=== PATIENT | male | born 1955 | race Caucasian/White ===

== ENCOUNTER 2016-08-03 00:10 | Observation (INO) ==
[2016-08-03] MEDS ORDERED: Aspirin 81 MG TAB.CHEW PO ONE (00:28)
[2016-08-03] MEDS ORDERED: 0.9 % Sodium Chloride 500 ML IVC ONE (00:28)
--- NOTE | 2016-08-03 00:33 | Emergency Department Note ---
Disposition Clinical Impression: Chest pain of unknown etiology, Unstable angina Disposition: Admitted As Inpatient Condition: Fair Time of Disposition: 04:46 Chest Pain HPI - General Chief Complaint: ED Chest Pain Stated Complaint: chest pain/bri hx of afib,strokes,heart attacks Time Seen by Provider: 08/03/16 00:14 Source: patient Limitations: no limitations Vital Signs Reviewed: Yes Nursing Notes Reviewed: Yes - History of Present Illness HPI Narrative: History of present illness: Patient is a 60-year-old male who presents for chest pain 2 hours ago that woke him from sleep. Patient has a history history of A. fib on xarelto, PR, renal disease, hypertension Patient states pain is 9 out of 10, sharp mid substernal no radiation and worsening with exertion. Patient states nothing makes it better. Severity scale (1-10): 3 - Related Data Home Medications Medication Instructions Recorded Confirmed Insulin ASPART [NovoLOG] 20 unit SQ BIDWM 07/03/15 07/26/16 Insulin Glargine [Lantus] 35 unit SQ DAILY 07/03/15 07/26/16 Insulin Glargine [Lantus] 40 unit SQ HS 07/03/15 07/26/16 Metoprolol [Lopressor] 50 mg PO BID 07/03/15 07/26/16 Aspirin [Lo-Dose Aspirin EC] 81 mg PO 06/10/16 Rivaroxaban [Xarelto] 10 mg PO DAILY 06/10/16 07/26/16 Atorvastatin [Lipitor] 40 mg PO HS 07/26/16 07/26/16 Lisinopril [Zestril] 5 mg PO DAILY 07/26/16 07/26/16 Previous Rx's Medication Instructions Recorded HYDROcodone/Acet 5/325 mg [[place] 1 tab PO Q6H PRN #14 tab 06/10/16 5-325 mg] Cephalexin [Keflex] 1,000 mg PO BID #40 capsule 07/26/16 Sulfamethoxazole/Trimeth DS 1 each PO BID #20 tablet 07/26/16 [Bactrim DS] Tramadol HCl [Ultram] 50 mg PO QID PRN #14 tab 07/26/16 Allergies Allergy/AdvReac Type Severity Reaction Status Date / Time No Known Allergies Allergy Verified 07/03/15 06:38 All systems ED: reviewed and negative except as stated. Constitutional: Denies: fever, chills, weakness Eyes: Denies: eye pain, vision change ENT ED: Denies: congestion Cardiovascular: Reports: chest pain. Denies: palpitations Respiratory: Denies: cough, dyspnea, wheezes, sputum production Gastrointestinal: Denies: abdominal pain, nausea, vomiting, diarrhea Genitourinary: Denies: urgency, dysuria, frequency Musculoskeletal: Denies: back pain, neck pain Integumentary: Denies: rash, abrasion Chest Pain PMH - Past Medical History Medical history: Reports: arthritis, atrial fibrillation, COPD, CVA, diabetes, hyperlipidemia, hypertension, myocardial infarction, renal disease, other Surgical history: Reports: other (Cardiac catheterization) Psychiatric history: Reports: no psych history - Social History Smoking Status: Current some day smoker Alcohol use: Reports: none Drug use: Reports: none Physical Exam - General Limitations: no limitations General appearance: alert, obese - Head Head exam: atraumatic, normocephalic, normal inspection - Eye Eye exam: Present: normal appearance, PERRL, EOMI. Absent: scleral icterus - ENT ENT exam: normal exam, normal oropharynx, mucous membranes moist - Neck Neck exam: Present: normal inspection, full ROM, trachea midline. Absent: tenderness, meningismus, lymphadenopathy - Chest Chest inspection: Present: normal inspection, symmetric chest wall rise. Absent : tenderness - Respiratory Respiratory exam: Present: normal lung sounds bilaterally. Absent: respiratory distress, wheezes - Cardiovascular Cardiovascular exam: Present: tachycardia, irregular rhythm. Absent: regular rate (Irregular rate) - Abdominal Exam Abdominal exam: Present: soft, Non-Tender - Extremities Exam Extremities exam: Present: normal inspection, full ROM, normal capillary refill. Absent: pedal edema - Back Exam Back exam: Present: normal inspection, full ROM. Absent: tenderness, CVA tenderness (R), CVA tenderness (L) - Neurological Exam Neurological exam: Present: alert, oriented X3, CN II-XII intact - Psychiatric Psychiatric exam: Present: normal affect, normal mood - Skin Skin exam: Present: warm, dry, intact, normal color. Absent: rash Course - Reevaluation(s) Reevaluation #1: Assessment: ACS/PR, aortic dissection, AAA, pneumothorax, PE Time: 00:29 Reevaluation #2: Patient states that his pain has subsided and currently 0 out of 10. Patient received 325 of aspirin Time: 01:43 Reevaluation #3: Patient still comfortable doing well. No complaints. The patient will be admitted for chest pain workup and cardiac evaluation Time: 02:30 - Consultations Consultation #1: Dr. Colunga has accepted for admission Time: 03:00 Vital Signs Temperature 97.4 F L 08/03/16 00:16 Pulse Rate 72 08/03/16 00:16 Respiratory Rate 14 08/03/16 00:16 Blood Pressure 129/101 08/03/16 00:16 O2 Sat by Pulse Oximetry 96 08/03/16 00:16 Temperature 97.9 F 08/03/16 04:42 Pulse Rate 81 08/03/16 04:42 Respiratory Rate 16 08/03/16 04:42 Blood Pressure 118/91 08/03/16 04:42 O2 Sat by Pulse Oximetry 95 08/03/16 05:54 Oxygen Delivery Oxygen Delivery Room Air Chest Pain - Medical Records Medical records reviewed: Yes I reviewed the patient's medical records. - Lab Data Lab results reviewed: Yes I reviewed the patient's lab results. Lab results narrative: Short CBC 08/03/16 Range/Units 00:39 WBC 9.8 (4.3-11.1) K/mcL Hgb 13.2 (12.9-16.9) g/dL Hct 40.3 (37.5-50.1) % Plt Count 394 (140-400) K/mcL Neutrophils # 6.1 (1.6-8.9) K/mcL BMP 08/03/16 Range/Units 00:39 Sodium 139 (136-145) mEq/L Potassium 5.1 H (3.5-4.5) mEq/L Chloride 108 (98-109) mEq/L Carbon Dioxide 22 (19-29) mEq/L BUN 36 H (8-26) mg/dL Creatinine 1.69 H (0.72-1.25) mg/dL Glucose 203 H (70-99) mg/dL Calcium 9.5 (8.6-10.8) mg/dL Cardiac Enzymes 08/03/16 Range/Units 00:39 Troponin I 0.00 (0-0.03) ng/mL Result diagrams: 08/03/16 00:39 08/03/16 06:01 Lab Results 08/03/16 08/03/16 08/03/16 Range/Units 00:39 00:39 00:39 WBC 9.8 (4.3-11.1) K/mcL RBC 4.20 (4.19-5.50) M/mcL Hgb 13.2 (12.9-16.9) g/dL Hct 40.3 (37.5-50.1) % MCV 96.0 (83.0-100.0) fL MCH 31.4 (28.0-33.3) pg MCHC 32.8 (31.6-35.5) g/dL RDW 12.8 (11.5-14.5) % Plt Count 394 (140-400) K/mcL MPV 9.8 (9.4-12.4) fL Immature Gran % 1.4 (0-4) % Seg Neutrophils % 62.5 % Lymphocytes % 23.3 % Monocytes % 8.7 % Eosinophils % 3.3 % Basophils % 0.8 % Neutrophils # 6.1 (1.6-8.9) K/mcL Lymphocytes # 2.3 (0.6-4.6) K/mcL Monocytes # 0.9 (0.0-1.3) K/mcL Eosinophils # 0.3 (0.0-0.6) K/mcL Basophils # 0.1 (0.0-0.2) K/mcL APTT 32.8 (26.0-36.0) Seconds Sodium 139 (136-145) mEq/L Potassium 5.1 H (3.5-4.5) mEq/L Chloride 108 (98-109) mEq/L Carbon Dioxide 22 (19-29) mEq/L BUN 36 H (8-26) mg/dL Creatinine 1.69 H (0.72-1.25) mg/dL Est GFR ( Amer) 50 L (> 60) Est GFR (Non-Af Amer) 42 L (> 60) BUN/Creatinine Ratio 21 (6-26) Glucose 203 H (70-99) mg/dL Calculated Osmolality 302 H (280-300) Lactic Acid (0.5-2.2) mmol/L Calcium 9.5 (8.6-10.8) mg/dL Troponin I (0-0.03) ng/mL 08/03/16 08/03/16 Range/Units 00:39 00:39 WBC (4.3-11.1) K/mcL RBC (4.19-5.50) M/mcL Hgb (12.9-16.9) g/dL Hct (37.5-50.1) % MCV (83.0-100.0) fL MCH (28.0-33.3) pg MCHC (31.6-35.5) g/dL RDW (11.5-14.5) % Plt Count (140-400) K/mcL MPV (9.4-12.4) fL Immature Gran % (0-4) % Seg Neutrophils % % Lymphocytes % % Monocytes % % Eosinophils % % Basophils % % Neutrophils # (1.6-8.9) K/mcL Lymphocytes # (0.6-4.6) K/mcL Monocytes # (0.0-1.3) K/mcL Eosinophils # (0.0-0.6) K/mcL Basophils # (0.0-0.2) K/mcL APTT (26.0-36.0) Seconds Sodium (136-145) mEq/L Potassium (3.5-4.5) mEq/L Chloride (98-109) mEq/L Carbon Dioxide (19-29) mEq/L BUN (8-26) mg/dL Creatinine (0.72-1.25) mg/dL Est GFR ( Amer) (> 60) Est GFR (Non-Af Amer) (> 60) BUN/Creatinine Ratio (6-26) Glucose (70-99) mg/dL Calculated Osmolality (280-300) Lactic Acid 1.6 (0.5-2.2) mmol/L Calcium (8.6-10.8) mg/dL Troponin I 0.00 (0-0.03) ng/mL - Radiology Data Radiology results reviewed: Yes I reviewed the patient's radiology results. Chest X-Ray 08/03/16 00:28 IMPRESSION: Cardiomegaly with grossly clear lungs. D/ / Steven Gonzalez MD / Steven Gonzalez MD Interpreting Provider: Steven Gonzalez MD - EKG Data EKG attestation: Yes I reviewed and interpreted this EKG. EKG results narrative: EKG taken 08/03/2016 at 0014 hours shows A. fib RVR at a rate of 103 beats a minute with no acute ST elevations or depressions in any leads. No QRS widening or QT prolongation. Previous EKG taken 07/03/2015 she also shows A. fib RVR at a rate of 103 beats per minute same morphological waveform as today' s EKG. Heart Score - Score History: Moderately Suspicious EKG: Non Specific repolarisation Disturbance Age: 45-65 Risk Factors: Equal/Greater than 3 risk factor or history of atherosclerotic disease Troponin: Less than normal limit HEART Score Total: 5 Attestation Statement - Attestation Attestation: I, Chava Ding MD, personally performed a history and physical exam of the patient and discussed their management with the resident. I reviewed the resident's note and agree with the documented findings, medical decision making , and plan of care. 60-year-old male presents to the emergency department with a complaint of some mid chest pain that awoke him from sleep. No radiation of the pain. No diaphoresis. Mild nausea. No vomiting. Mild shortness of breath. On examination patient is a well-developed well-nourished male in no acute distress. He is alert and oriented 3. There is no cyanosis or diaphoresis. Chest is nontender to palpation. Clear and equal bilaterally. Heart irregularly irregular. Abdomen soft and nontender with normal bowel sounds. Labs reviewed. EKG shows atrial fibrillation with RVR with a heart rate of 103. The hospitalist, Dr. Colunga, was consulted and accepted admission of the patient.
[2016-08-03 00:50] LABS: Basophils # 0.1 K/mcL (0.0-0.2); Basophils % 0.8 %; Eosinophils # 0.3 K/mcL (0.0-0.6); Eosinophils % 3.3 %; Hematocrit 40.3 % (37.5-50.1); Hemoglobin 13.2 g/dL (12.9-16.9); Immature Granulocytes % 1.4 % (0-4); Lymphocytes # 2.3 K/mcL (0.6-4.6); Lymphocytes % 23.3 %; Mean Corpuscular HGB Conc 32.8 g/dL (31.6-35.5); Mean Corpuscular Hemoglobin 31.4 pg (28.0-33.3); Mean Platelet Volume 9.8 fL (9.4-12.4); Monocytes # 0.9 K/mcL (0.0-1.3); Monocytes % 8.7 %; Neutrophils # 6.1 K/mcL (1.6-8.9); Platelet Count 394 K/mcL (140-400); Red Cell Distribution Width 12.8 % (11.5-14.5); Segmented Neutrophils % 62.5 %
[2016-08-03 01:02] LABS: Calcium 9.5 mg/dL (8.6-10.8); Potassium 5.1 mEq/L (3.5-4.5)
--- NOTE | 2016-08-03 04:26 | Internal Med History&Physical ---
Date of Encounter: 08/03/16 Time of Encounter: 04:01 Assessment and Plan (1) Chest pain Current visit: Yes Status: Acute patient with no prior history of obstructive CAD but significant personal and family history of premature CAD comes in with chest pain, we will admit him for ACS r/o, admission EKG was unchanged from prior, troponin was not elevated NPO except medications, will check Lipid panel and A1c, telemonitor continue aspirin and lipitor nuclear stress test in AM Qualifiers: Chest pain type: precordial pain Qualified Code(s): R07.2 - Precordial pain (2) Cellulitis Current visit: Yes Status: Acute pt has cellulitis with abscess of the right elbow that grew MRSA, he is on Bactrim for that which we will continue bas well as wound care Qualifiers: Site of cellulitis: extremity Site of cellulitis of extremity: upper extremity Laterality: right Qualified Code(s): L03.113 - Cellulitis of right upper limb (3) CKD (chronic kidney disease) stage 3, GFR 30-59 ml/min Current visit: Yes Status: Chronic stable, will avoid nephrotoxins, renally dose all medications and follow BMP (4) DM type 2 (diabetes mellitus, type 2) Current visit: Yes Status: Chronic Hx of Type 2 DM with good control per last A1c, we will recheck it, for now FS Q6H with SSI whilst NPO Qualifiers: Diabetes mellitus complication status: with kidney complications Diabetes mellitus complication detail: with chronic kidney disease Diabetes mellitus usp insulin use: with termination clerk use Chronic kidney disease stage: stage 3 (moderate) Qualified Code(s): E11.22 - Type 2 diabetes mellitus with diabetic chronic kidney disease; N18.3 - Chronic kidney disease, stage 3 ( moderate); Z79.4 - rat exterminator (current) use of insulin (5) HTN (hypertension) Current visit: Yes Status: Chronic normotensive on home regimen, we will continue that with BP monitoring Qualifiers: Hypertension type: essential hypertension Qualified Code(s): I10 - Essential (primary) hypertension (6) Afib Current visit: Yes Status: Chronic Hx of chronic AFIB and on systemic anticoagulation and rate controlled medication Qualifiers: Atrial fibrillation type: chronic Qualified Code(s): I48.2 - Chronic atrial fibrillation (7) COPD (chronic obstructive pulmonary disease) Current visit: Yes Status: Chronic stable, we will order PRN nebs Qualifiers: COPD type: chronic bronchitis Chronic bronchitis type: simple Qualified Code(s): J41.0 - Simple chronic bronchitis (8) Morbid obesity Current visit: Yes Status: Chronic will need counseling regarding diet Qualifiers: Obesity type: due to excess calories Qualified Code(s): E66.01 - Morbid ( severe) obesity due to excess calories Internal Medicine - H&P: HPI Chief complaint: Chest pain Admitted From: Emergency Dept Plans for Post Hospital Care: Home History of present illness: Mr. Connell is a 60 year old male with a history of well controlled DM type 2/ HTN/morbid obesity with a BMI of 56kg/m2 who comes in with chest pain. He was in his usual state of health until at around 10:30 pm last night when he was rudely awaken by severe sharp retrosternal pain. He reports that the pain was 8- 9/10 in severity and constant, it was relieved by aspirin en route to the ER of [facility]. He reports that his pain was associated with shortness of breath, palpitations, diaphoresis, lightheadedness but denied nausea or vomiting. The pain did not radiate. He reports that this is his first such episode. He had a stress test in 2013 which was followed by a cardiac cath but no stents were placed. In the ER his EKG was AFIB with RVR of 103, no change from prior EKG, his troponin levels were not elevated. Past Med Surg Social Fam HX - Past Medical History Source: patient Medical history: arthritis, atrial fibrillation, COPD, CVA, diabetes, hyperlipidemia, hypertension, myocardial infarction, renal disease, other Psychiatric history: no psych history - Past Surgical History Surgical History: other (Cardiac catheterization) - Social History Smoking Status: Current some day smoker Smokeless Tobacco Status: No Alcohol use: none Drug use: none - Family History Father Hx Family Cardiac Disorders: Yes (DE) - Additional Family History Additional family history: his father had an DE in his 40's, brother had an DE in his 60's and his sister had an DE in her 50's Internal Medicine - H&P: Meds Insulin ASPART [NovoLOG] 20 unit SQ BIDWM 07/03/15 [History] Insulin Glargine [Lantus] 35 unit SQ DAILY 07/03/15 [History] Insulin Glargine [Lantus] 40 unit SQ HS 07/03/15 [History] Metoprolol [Lopressor] 50 mg PO BID 07/03/15 [History] Aspirin [Lo-Dose Aspirin EC] 81 mg PO 06/10/16 [History] HYDROcodone/Acet 5/325 mg [[place] 5-325 mg] 1 tab PO Q6H PRN #14 tab 06/10/16 [Rx ] Rivaroxaban [Xarelto] 10 mg PO DAILY 06/10/16 [History] Atorvastatin [Lipitor] 40 mg PO HS 07/26/16 [History] Cephalexin [Keflex] 1,000 mg PO BID #40 capsule 07/26/16 [Rx] Lisinopril [Zestril] 5 mg PO DAILY 07/26/16 [History] Sulfamethoxazole/Trimeth DS [Bactrim DS] 1 each PO BID #20 tablet 07/26/16 [Rx] Tramadol HCl [Ultram] 50 mg PO QID PRN #14 tab 07/26/16 [Rx] Allergies No Known Allergies Allergy (Verified 07/03/15 06:38) All Systems PM: A 10-system review of systems was performed and is negative for pertinent findings except as documented above in the HPI. - Constitutional Constitutional: as per HPI - EENT Eyes: as per HPI Ears: as per HPI Nose, mouth and throat: as per HPI - Cardiovascular Cardiovascular ROS IM: as per HPI - Respiratory Respiratory: as per HPI - Gastrointestinal Gastrointestinal: as per HPI - Genitourinary Genitourinary ROS male: as per HPI - Musculoskeletal Musculoskeletal ROS IM: as per HPI - Integumentary Integumentary IM: erythema, sores - Neurological Neurological ROS: no confusion, no convulsions, no focal weakness, no numbness, no tingling, no tremor(s) - Psychiatric Psychiatric: as per HPI - Endocrine Endocrine IM: as per HPI - Hematologic/Lymphatic Hematologic/Lymphatic: as per HPI - Allergic/Immunologic Allergic/Immunologic: as per HPI - Constitutional Vitals: Temp Pulse Resp BP Pulse Ox 97.4 F L 85 18 124/80 96 08/03/16 00:16 08/03/16 03:57 08/03/16 04:09 08/03/16 04:09 08/03/16 03:57 - General General appearance: Adult male, sitting up by the side of his bed, morbidly obese looking, alert, not in obvious pain - Head Head exam: atraumatic, normocephalic, normal inspection - Eye Eye exam: normal appearance, PERRL, EOMI, normal conjunctiva, Absent: scleral icterus - ENT ENT exam: erythema of the nasolabial folds bilaterally, normal oropharynx, mucous membranes moist - Neck Neck exam: short, thick neck, full ROM, trachea midline. Absent: tenderness, meningismus, lymphadenopathy - Respiratory Respiratory exam: Present: normal lung sounds bilaterally. Absent: respiratory distress, wheezes - Cardiovascular Cardiovascular exam: Present: tachycardia, irregular rhythm, no appreciable murmurs, trace pedal edema - Abdominal Exam Abdominal exam: soft, Non-Tender, no masses palpable, normal bowel sounds - Extremities Exam Extremities exam: Present: normal inspection, full ROM, normal capillary refill. Absent: pedal edema - Neurological Exam Neurological exam: Present: alert, oriented X3, CN II-XII intact, non focal motor and sensory exam - Psychiatric Psychiatric exam: Present: normal affect, normal mood - Skin Skin exam: Present: warm, dry, intact, erythema as noted in the HEENT section, also erythema with healing ulcer at the right elbow-extensor surface Internal Med - H&P Results - Labs CBC & Chem 7: 08/03/16 00:39 08/03/16 00:39 - EKG Data -: EKG Interpreted by Myself Rate: tachycardia - EKG Data Prior EKG available for review: yes When compared to previous EKG: there is no significant change - Diagnostic Studies Chest x-ray Status: image reviewed by me
[2016-08-03] MEDS ORDERED: *HR* Dextrose 50 % in Water (Syg) 50 ML SYRINGE IVP PRN (04:28)
[2016-08-03] MEDS ORDERED: D5% in Water 1,000 ML IVC PRN (04:28)
[2016-08-03] MEDS ORDERED: Dextrose Gel 15 GM PO PRN ×2 (04:28)
[2016-08-03] MEDS ORDERED: Naloxone 0.4 MG/ML INJ IVP PRN (04:29)
[2016-08-03] MEDS ORDERED: *HR* HYDROcodone/Acet 5/325 mg TABLET PO PRN (04:30)
[2016-08-03] MEDS ORDERED: Mag Hydrox/Al Hydrox/Simeth 30 ML UDC PO PRN (04:47)
[2016-08-03] MEDS ORDERED: Nitroglycerin 0.4 MG TAB.SUBL SL PRN (04:48)
[2016-08-03] MEDS: 0.9 % Sodium Chloride 1,000 ML IVC SCH ×2 (05:06→22:40)
[2016-08-03] MEDS: Insulin LISPRO 300 UNITS/3 ML VIAL SQ SCH ×3 (05:27→17:35)
[2016-08-03 06:28] LABS: Hemoglobin A1C 6.7 %
[2016-08-03 06:32] LABS: Calcium 9.5 mg/dL (8.6-10.8); Chol/HDL Ratio 4.2 (0-4.9); Magnesium 1.8 mg/dL (1.6-2.6); Phosphorous 4.3 mg/dL (2.3-4.7); Potassium 5.3 mEq/L (3.5-4.5)
[2016-08-03] MEDS: *HR* Rivaroxaban 10 MG TABLET PO SCH (06:34)
[2016-08-03] MEDS ORDERED: Regadenoson 0.4 MG/5 ML SYRINGE IVP ONE (07:11)
[2016-08-03] MEDS: Sulfamethoxazole/Trimeth DS 1 EACH TABLET PO SCH ×2 (11:08→21:46)
[2016-08-03] MEDS: Aspirin Enteric Coated 81 MG Tablet PO SCH (11:08)
--- NOTE | 2016-08-03 18:08 | Internal Med Progress Note ---
Date of Encounter: 08/03/16 Time of Encounter: 17:50 - Assessment and plan (1) CKD (chronic kidney disease) stage 3, GFR 30-59 ml/min Current Visit: Yes Status: Chronic Assessment and plan: Chronic. Creatinine is at baseline for the patient. We will continue to monitor Labs in the a.m. Avoid nephrotoxins. (2) DM type 2 (diabetes mellitus, type 2) Current Visit: Yes Status: Chronic Assessment and plan: A1c is 6.7. Last Accu-Chek 181. Sliding scale insulin Accu-Cheks before meals at bedtime Diabetic diet Qualifiers: Diabetes mellitus complication status: with kidney complications Diabetes mellitus complication detail: with chronic kidney disease Diabetes mellitus local company intermodal truck driver insulin use: with senior living use Chronic kidney disease stage: stage 3 (moderate) Qualified Code(s): E11.22 - Type 2 diabetes mellitus with diabetic chronic kidney disease; N18.3 - Chronic kidney disease, stage 3 ( moderate); Z79.4 - detention (current) use of insulin (3) Chest pain Current Visit: Yes Status: Acute Assessment and plan: Patient reports chest pain that awakened him at 10:30 last night. It was really bad for about 45 minutes. He says it sharp and he had cold sweats. He denies shortness of breath or nausea. He also denies radiation of pain. He arrived at the emergency department at about midnight. He said pain finally resolved about 2:30 in the morning. He has been pain-free since. Troponins have been negative Chest x-ray simply shows cardiomegaly and grossly clear lungs. Earth Science Technical Officer vital signs 2 day stress test will be completed tomorrow Pain control as needed Qualifiers: Chest pain type: precordial pain Qualified Code(s): R07.2 - Precordial pain (4) Morbid obesity Current Visit: Yes Status: Chronic Assessment and plan: Chronic. Lifestyle changes. Qualifiers: Obesity type: due to excess calories Qualified Code(s): E66.01 - Morbid ( severe) obesity due to excess calories (5) HTN (hypertension) Current Visit: Yes Status: Chronic Assessment and plan: Chronic. Continue home medications. Qualifiers: Hypertension type: essential hypertension Qualified Code(s): I10 - Essential (primary) hypertension (6) Afib Current Visit: Yes Status: Chronic Assessment and plan: Patient is rate controlled with medication. He is also anticoagulated. Earth Science Technical Officer vital signs Qualifiers: Atrial fibrillation type: chronic Qualified Code(s): I48.2 - Chronic atrial fibrillation (7) COPD (chronic obstructive pulmonary disease) Current Visit: Yes Status: Chronic Assessment and plan: Chronic. Well controlled Duo nebs as needed. Qualifiers: COPD type: chronic bronchitis Chronic bronchitis type: simple Qualified Code(s): J41.0 - Simple chronic bronchitis (8) Cellulitis Current Visit: Yes Status: Acute Assessment and plan: Patient has MRSA infection to right elbow. It is covered and bandaged. He is taking Bactrim but is being continued inpatient. Qualifiers: Site of cellulitis: extremity Site of cellulitis of extremity: upper extremity Laterality: right Qualified Code(s): L03.113 - Cellulitis of right upper limb - Time Spent With Patient less than 15 minutes - Subjective Interval history: Pt states that he had sharp midsternal chest pain without radiation that awakened him from sleep at 1030 last pm. He said that he had cold sweats and that pain was very sharp for abou 45 min. He came to the ED at about midnight and pain persisted until about 0230. He has not had pain since. He is having a 2 day stress test. - Constitutional Vitals: Temp Pulse Resp BP Pulse Ox 97.6 F 95 17 144/78 93 08/03/16 15:28 08/03/16 15:28 08/03/16 15:28 08/03/16 15:28 08/03/16 15:28 General appearance: Present: A&O X 3, pleasant, answers questions appropriately - Head Head exam: Present: normal inspection - ENT ENT exam: Present: mucous membranes moist, normal exam - Neck Neck exam general surgery: Present: normal inspection. Absent: lymphadenopathy , tenderness - Respiratory Respiratory exam: Present: CTAB. Absent: rhonchi, wheezes - Cardiovascular Cardiovascular exam: Present: RRR, +S1, +S2. Absent: diastolic murmur, systolic murmur - GI/Abdominal GI/Abdominal exam: Present: normal bowel sounds, soft. Absent: hepatomegaly, splenomegaly, tenderness - Extremities Exam Extremities exam: Present: normal capillary refill, normal inspection, warm. Absent: pedal edema, tenderness - Neurological Exam Neurological exam: Present: alert, oriented X3, no focal deficits, strengths equal and symetr throughout. Absent: facial droop, speech deficit Internal Medicine: Result - Labs CBC & Chem 7: 08/03/16 00:39 08/03/16 06:01 Labs: BMP 08/03/16 06:01 Sodium 139 Potassium 5.3 H Chloride 109 Carbon Dioxide 22 BUN 36 H Creatinine 1.67 H Glucose 126 H Calcium 9.5 Cardiac Enzymes 08/03/16 08/03/16 Range/Units 06:01 12:51 Troponin I 0.01 0.01 (0-0.03) ng/mL Consult Discharge Plan - Plan Referrals: Lissett Sanders, COSMETOLOGIST APPRENTICE [Primary Care Provider] -
[2016-08-04] MEDS: Insulin LISPRO 300 UNITS/3 ML VIAL SQ SCH ×3 (00:05→12:34)
[2016-08-04 02:57] LABS: Basophils # 0.1 K/mcL (0.0-0.2); Basophils % 0.7 %; Eosinophils # 0.3 K/mcL (0.0-0.6); Eosinophils % 2.8 %; Hematocrit 37.4 % (37.5-50.1); Hemoglobin 12.1 g/dL (12.9-16.9); Immature Granulocytes % 0.8 % (0-4); Lymphocytes # 2.5 K/mcL (0.6-4.6); Lymphocytes % 20.7 %; Mean Corpuscular HGB Conc 32.4 g/dL (31.6-35.5); Mean Corpuscular Hemoglobin 31.7 pg (28.0-33.3); Mean Corpuscular Volume 97.9 fL (83.0-100.0); Mean Platelet Volume 10.3 fL (9.4-12.4); Monocytes # 1.2 K/mcL (0.0-1.3); Monocytes % 10.4 %; Neutrophils # 7.7 K/mcL (1.6-8.9); Platelet Count 384 K/mcL (140-400); Red Blood Count 3.82 M/mcL (4.19-5.50); Red Cell Distribution Width 12.9 % (11.5-14.5); Segmented Neutrophils % 64.6 %
[2016-08-04 03:10] LABS: Calcium 8.8 mg/dL (8.6-10.8)
[2016-08-04] MEDS: *HR* Rivaroxaban 10 MG TABLET PO SCH (05:59)
[2016-08-04] MEDS: Aspirin Enteric Coated 81 MG Tablet PO SCH (10:18)
[2016-08-04] MEDS: Sulfamethoxazole/Trimeth DS 1 EACH TABLET PO SCH (10:18)
--- NOTE | 2016-08-04 10:59 | Nuclear Medicine Stress Report ---
Regadenoson Nuclear 2 day Name: Shadi Connell Date of Study: 08/03/2016 Date: 1955 Ht: 68.0 in Medical Record#: [id number] Age: 60 Wt: 369.0 lb Gender: Male Order #: [id number] Location: [facility] Room: [facility] Supervising Provider: Dmitry Crawford CNP Reading Physician: Tahir Hdez MD, LOCATED WITHIN [facility] Ordering Physician: Brianne Rogers CNP Primary Care Physician: RASHAD Gutierrez Stress Technologist: Stiven Weems RRT, CCT Medical Laboratory Scientist: Timothy Lincoln Indications: Chest Pain Impression: Perfusion imaging was negative for ischemia or infarct. Pharmacologic ECG was non diagnostic for ischemia. Patient had no chest pain with stress. Normal hemodynamic response. Gated EF = 50% compromised because of AF There is no evidence of TID. No high risk findings on this study. History: Hypertension Diabetes Hypercholesteremia History of Smoking Stress Test Summary: Stress Test Type: Pharmacologic Regadenoson 0.4mg/5ml given IV Baseline Information: Initial Heart Rate: 101 Blood Pressure: 126/80 Stress Information: Stress Time: 4 min 00 sec Test Terminated Due to (primary): Completed Protocol Maximum Blood Pressure: 132/80 Maximum Heart Rate: 127 Percent Maximum Heart Rate Achieved: 80 Double Product: [id number] METS Reached: 1 Symptoms: Nausea Nuclear Summary: SPECT myocardial perfusion imaging using Tc99m Sestamibi given intravenously was performed at rest and following cardiac stress testing. The resting images were obtained following initial dose of 34.9 mCi. Following stress an additional dose of 35.8 mCi was given at peak exercise or 30 seconds post regadenoson infusion. Medication Given: Time Medication Dose Units Route Findings: Stress Note * Atrial fibrillation with with controlled ventricular response prior to exam beginning. * Pharmacologic stress ECG is non diagnostic for ischemia due to failure to reach target heartrate. * Atrial fibrillation during stress. * Rare PVCs noted during stress. * Patient had no chest pain during stress. Study Quality * Study quality is average. Hemodynamic responses * Normal hemodynamic responses to pharmacologic stress. Gated EF % * Gated EF = 50% compromised by AF Left Ventricle * The left ventricle is not dilated. NORMALS * Normal wall motion. * Normal segmental perfusion in stress. * All other segmental perfusion normal in rest. Inferior Perfusion Rest * The inferior segment shows a mild reduction in perfusion. That improves with stress consistent with artifact. TID * No evidence of transient ischemic dilatation. Updated by Tahir Hdez MD, FACC on 08/04/2016 10:53:06 AM electronically signed on 08/04/2016 10:54:56 AM with status of Final
[2016-08-04 11:29] VITALS: BP 116/70
--- NOTE | 2016-08-04 14:36 | Discharge Summary ---
Date of Encounter: 08/04/16 Time of Encounter: 14:00 - Discharge Diagnosis (1) Chest pain Priority: Primary Status: Acute Comments: Patient is pain-free today. He denies having any pain since the night he arrived. His troponins were negative, chest x-ray was cardiomegaly grossly clear lungs. Patient's vitals have been stable. Echocardiogram today was negative for ischemia or infarct, no chest pain during stress, gated EF 50% no evidence of TID, no high risk findings on this study. Qualifiers: Chest pain type: other chest pain Qualified Code(s): R07.89 - Other chest pain; R07.8 - Other chest pain (2) CKD (chronic kidney disease) stage 3, GFR 30-59 ml/min Priority: Secondary Status: Chronic Comments: Stable, patient will continue to drink water. He refused IV fluids all night because the pump was beeping. We did get about 100 mL in him today. He will follow-up with his primary care physician. (3) DM type 2 (diabetes mellitus, type 2) Priority: Secondary Status: Chronic Comments: Chronic. Continue medications at home. Current A1c is 6.7. Qualifiers: Diabetes mellitus complication status: with kidney complications Diabetes mellitus complication detail: with chronic kidney disease Diabetes mellitus continuous churn buttermaker insulin use: with group home use Chronic kidney disease stage: stage 3 (moderate) Qualified Code(s): E11.22 - Type 2 diabetes mellitus with diabetic chronic kidney disease; N18.3 - Chronic kidney disease, stage 3 ( moderate); Z79.4 - [facility] (current) use of insulin (4) Morbid obesity Priority: Secondary Status: Chronic Comments: Chronic. Lifestyle changes. Qualifiers: Obesity type: due to excess calories Qualified Code(s): E66.01 - Morbid ( severe) obesity due to excess calories (5) HTN (hypertension) Priority: Secondary Status: Chronic Comments: Chronic. Continue home medications. Qualifiers: Hypertension type: essential hypertension Qualified Code(s): I10 - Essential (primary) hypertension (6) Afib Priority: Secondary Status: Chronic Comments: Patient is rate controlled with beta rodney, is on systemic anticoagulation. Will continue at home. Qualifiers: Atrial fibrillation type: chronic Qualified Code(s): I48.2 - Chronic atrial fibrillation (7) COPD (chronic obstructive pulmonary disease) Priority: Secondary Status: Chronic Comments: Stable. Well-controlled at home. Continue home medications and regimen. Qualifiers: COPD type: chronic bronchitis Chronic bronchitis type: simple Qualified Code(s): J41.0 - Simple chronic bronchitis (8) Cellulitis Priority: Secondary Status: Chronic Comments: Patient is taking Bactrim for a MRSA infection on his right elbow. He has been on contact but cautions while he has been here. Continue home medications. Qualifiers: Site of cellulitis: extremity Site of cellulitis of extremity: upper extremity Laterality: right Qualified Code(s): L03.113 - Cellulitis of right upper limb - Discharge Medications Home Medications: Insulin ASPART [NovoLOG] 0 - 32 unit SQ TID PRN 07/03/15 [History] Insulin Glargine [Lantus] 35 unit SQ DAILY 07/03/15 [History] Insulin Glargine [Lantus] 40 unit SQ HS 07/03/15 [History] Metoprolol [Lopressor] 50 mg PO BID 07/03/15 [History] Aspirin [Lo-Dose Aspirin EC] 81 mg PO DAILY 06/10/16 [History] Atorvastatin [Lipitor] 40 mg PO HS 07/26/16 [History] Lisinopril [Zestril] 10 mg PO DAILY 07/26/16 [History] Sulfamethoxazole/Trimeth DS [Bactrim Ds] 1 each PO BID #20 tablet 07/26/16 [Rx] Tramadol HCl [Ultram] 50 mg PO QID PRN #14 tab 07/26/16 [Rx] Albuterol Sulfate [Albuterol Inhaler] 2 puff IH Q4-6H PRN 08/03/16 [History] Cholecalciferol (Vitamin D3) [Vitamin D3] 50,000 unit PO QWEEK 08/03/16 [History ] Clindamycin HCl [Cleocin HCl] 300 mg PO TID 08/03/16 [History] Diltiazem CD (24hr) [Cardizem CD] 120 mg PO DAILY 08/03/16 [History] Fluticasone Propionate Nasal [Flonase] 1 spray NS DAILY 08/03/16 [History] Liraglutide [Victoza 2-Henry] 1.2 mg SQ DAILY 08/03/16 [History] Oxycodone HCl/Acetaminophen [Percocet 7.5-325 mg Tablet] 1 each PO QID PRN 08/03 [History] Rivaroxaban [Xarelto] 20 mg PO DAILY 08/03/16 [History] Triamterene/HCTZ 37.5/25mg [Dyazide] 1 tab PO DAILY 08/03/16 [History] Allergies/Adverse Reactions: Allergies No Known Allergies Allergy (Verified 08/03/16 11:34) Procedures/tests Complete & Pending: Procedures Performed prior 72 hours Category Date Time Status NM swathi perf SPECT multi [NM] Routine Exams 08/03/16 09:00 Taken SP pharm nuclear stress Routine Y 08/03/16 04:28 Completed Date of admission: 08/03/16 03:55 Primary care physician: Lissett Sanders Consults: 08/03/16 05:33 Consult to Nutrition [CONS] Routine Comment: Consulting Provider: NUTRITION Reason for Dietary Consult: Diet Education Discharging clinician: Brianne Rogers Anticipated date of discharge: 08/04/16 - Patient Status Disposition: Home, Self-Care Condition: Good Functional capacity at discharge: independent ambulation Overall status at discharge: patient is back to baseline - Discharge Instructions Follow Up With: Lissett Sanders, [employer] [Primary Care Provider] - Additional Instructions: Continue your normal home medications Return to the ER as needed for any other problems or concerns or if your condition changes. Drink plenty of water over the next few days to flush your kidneys Follow up with your primary care provider in the next week for a follow up appointment. - Diet and Activity Activity: increase activity as tolerated Diet: diabetic diet, low salt diet Hospital course: Mr. Connell is a 60 year old male with a history of A. fib with anticoagulation and medication for rate control, COPD, morbid obesity, hypertension, type 2 diabetes, and stage III kidney disease. He is also being treated now for a MRSA infection on his right elbow. He is being treated with Doxy and Bactrim will continually gets home. He has no prior history of cardiac disease of his own, he has a significant family history and presents with chest pain that awakened him from sleep at 10:30 on August 02. He said the pain was really sharp and intense for about 45 minutes and he began having cold sweats. He denied shortness of breath or nauseated or relation of pain. He wrecked the emergency department at midnight and pain finally resolved about 2: 30 in the morning after nitroglycerin and morphine. He has been pain-free since that time. His troponins were all negative. Chest x-ray showed cardiomegaly with grossly clear lungs, difficult to assess due to patient's body habitus. Patient had a 2 day echo that was negative for ischemia or infarct. He did not have any chest pain with the stress test. Gated EF is equal to 50% without evidence of TID, no high-risk findings on this study as documented by cardiology. Patient is irritated that he has been here so long and is requesting to go home quickly. His lungs are clear but diminished, is no peripheral edema, he is chest pain-free. His abdomen is obese and rounded and soft. He denies abdominal pain. He is alert and oriented 3 speech is clear, he does move all extremities 4. Patient is stable for discharge. Will continue all of his home medications at home. We discussed increasing fluid due to medications for stress test. I encouraged follow-up with primary care within the next week. - Time Spent with Patient Total time spent providing and/or coordinating discharge services: Less than 30 minutes - Constitutional Vitals: Temp Pulse Resp BP Pulse Ox 97.6 F 71 19 116/70 93 08/04/16 11:28 08/04/16 11:28 08/04/16 11:28 08/04/16 11:28 08/04/16 11:28 General appearance: Present: A&O X 3, pleasant, answers questions appropriately - Head Head exam: Present: normal inspection - Eye Eye exam: Present: normal appearance - ENT ENT exam: Present: mucous membranes moist, normal exam - Neck Neck exam general surgery: Present: normal inspection. Absent: lymphadenopathy , tenderness - Respiratory Respiratory exam: Absent: rales, rhonchi, wheezes - Cardiovascular Cardiovascular exam: Present: RRR, +S1, +S2. Absent: diastolic murmur, systolic murmur - GI/Abdominal GI/Abdominal exam: Present: distended, normal bowel sounds, soft. Absent: hepatomegaly, tenderness - Extremities Exam Extremities exam: Present: warm, radial pulses palpable and symetrical. Absent : pedal edema, tenderness - Neurological Exam Neurological exam: Present: alert, oriented X3. Absent: no focal deficits, facial droop, speech deficit
--- NOTE | 2016-08-05 09:02 | Electrocardiograph Report ---
[address] [place] [address] Test Date: 2016-08-03 Pat Name: [facility] Department: 102 Room: 3B Gender: M Hand [employer]ter: [facility] : 1955 Requested By: Rodrigo Neil Order Number: [id number] Reading MD: Tahir Hdez MD Measurements Intervals [place] Rate: 103 P: NM: 0 QRS: 210 QRSD: 7 T: 0 QT: 113 QTc: 173 Interpretive Statements ATRIAL FIBRILLATION WITH RAPID VENTRICULAR RESPONSE MARKED RIGHT AXIS DEVIATION LOW QRS VOLTAGE Electronically Signed On 08-05-2016 9:01:26 EDT by Tahir Hdez MD
== END 2016-08-04 15:20 | disposition home or self-care (01) ==
LOC: EMEROO 00:10 → 3BNU 00:10
PROVIDERS: ADMIT Internal Medicine; ATTEND Registered Nurse

== ENCOUNTER 2018-09-13 21:17 | Observation (INO) ==
[2018-09-13 22:17] LABS: Bilirubin,Urine Negative (Negative); Blood,Urine Large (Negative); Glucose,Urine (UA) Normal (Normal); Ketones,Urine Negative (Negative); Leukocyte Esterase,Urine Large (Negative); Nitrite,Urine Negative (Negative); Protein,Urine >=300 mg/dL (Neg-Trace); Specific Gravity,Urine 1.005 (1.010-1.025); Urobilinogen,Urine Normal (Normal)
[2018-09-13 22:18] LABS: Clarity,Urine Cloudy (Clear); Color,Urine Red (Yellow)
--- NOTE | 2018-09-14 02:02 | Emergency Department Note ---
Disposition Clinical Impression: Tachycardia Leukocytosis Qualifiers: Leukocytosis type: unspecified Qualified Code(s): D72.829 - Elevated white blood cell count, unspecified Hematuria Qualifiers: Hematuria type: unspecified type Qualified Code(s): R31.9 - Hematuria, unspecified Disposition: Admitted As Inpatient Time of Disposition: 03:36 General Adult HPI - General Chief complaint: ED Urogenital-Male Stated complaint: Hematuria Time Seen by Provider: 09/13/18 23:29 Source: patient, family Limitations: no limitations Nursing Notes Reviewed: Yes Vital Signs Reviewed: Yes - History of Present Illness HPI Narrative: 62-year-old male complains of hematuria that he noticed today. He does describe dysuria and increased urinary frequency as well. Patient does describe being on Xarelto for A. fib, as well as a history of chronic knee disease stage III and is followed by nephrology. No recent urological procedures. Denies any injury or trauma. Patient denies any scrotal pain, history kidney stones, flank pain, abdominal pain, recent illness, nausea, vomiting. Pain Scale: 0 - Related Data Home Medications Medication Instructions Recorded Confirmed Insulin Glargine [Lantus] 35 unit SQ HS 07/03/15 04/17/18 Insulin Glargine [Lantus] 45 unit SQ DAILY 07/03/15 04/17/18 Aspirin [Lo-Dose Aspirin EC] 81 mg PO DAILY 06/10/16 04/17/18 Atorvastatin [Lipitor] 40 mg PO DAILY 07/26/16 04/17/18 Lisinopril [Zestril] 10 mg PO DAILY 07/26/16 04/17/18 Albuterol Sulfate [Albuterol 2 puff IH DAILY 08/03/16 04/17/18 Inhaler] Cholecalciferol (Vitamin D3) 50,000 unit PO NORIEGA 08/03/16 04/17/18 [Vitamin D3] Liraglutide [Victoza 2-Henry] 1.8 mg SQ DAILY 08/03/16 04/17/18 Rivaroxaban [Xarelto] 20 mg PO DAILY 08/03/16 04/17/18 HYDROcodone/Acet 5/325 mg [[place] 1 tab PO Q12H PRN 04/17/18 04/17/18 5-325 mg] Pioglitazone HCl 45 mg PO DAILY 04/17/18 04/17/18 Previous Rx's Medication Instructions Recorded Metoprolol [Lopressor] 50 mg PO BID #60 tablet 04/26/18 metOLazone [Zaroxolyn] 10 mg PO DAILY #60 tablet 04/26/18 Allergies Allergy/AdvReac Type Severity Reaction Status Date / Time No Known Allergies Allergy Verified 09/12/16 14:29 All systems ED: reviewed and negative except as stated. Review of Systems: As Per HPI Constitutional: Denies: fever, chills, weakness Eyes: Denies: vision change ENT ED: Denies: throat pain Cardiovascular: Denies: palpitations Respiratory: Denies: dyspnea Gastrointestinal: Denies: abdominal pain, nausea, vomiting Genitourinary: Reports: as per HPI Musculoskeletal: Denies: back pain, neck pain Integumentary: Denies: rash Neurological: Denies: headache Endocrine: Denies: fatigue Hematological/Lymphatic: Denies: easy bleeding Allergic/Immunologic: Denies: facial swelling Past Medical History - Past Medical History Medical history: Reports: arthritis, atrial fibrillation, COPD, CVA, diabetes, hyperlipidemia, hypertension, myocardial infarction, renal disease, other Surgical history: Reports: other (Cardiac catheterization) Psychiatric history: Reports: no psych history - Social History Smoking Status: Former smoker Smokeless Tobacco Status: No Alcohol use: Reports: rarely Drug use: Reports: none Physical Exam - General Limitations: no limitations General appearance: alert, in no apparent distress - Head Head exam: atraumatic, normocephalic - Eye Eye exam: Present: EOMI - ENT ENT exam: mucous membranes moist - Neck Neck exam: Present: full ROM - Chest Chest inspection: Present: symmetric chest wall rise - Respiratory Respiratory exam: Present: normal lung sounds bilaterally. Absent: respiratory distress - Cardiovascular Cardiovascular exam: Present: regular rate, tachycardia - Abdominal Exam Abdominal exam: Present: soft, Non-Tender - Extremities Exam Extremities exam: Present: full ROM, normal capillary refill. Absent: pedal edema - Back Exam Back exam: Present: full ROM. Absent: CVA tenderness (R), CVA tenderness (L) - Neurological Exam Neurological exam: Present: alert - Psychiatric Psychiatric exam: Present: normal affect, normal mood - Skin Skin exam: Present: warm, dry, intact, normal color. Absent: rash, cyanosis, diaphoresis Course Course Narrative: Patient seen and examined. he presents with complaint of hematuria. He also describes some dysuria and urinary frequency. He is tachycardic, that chills. He denies any flank pain, suprapubic pain, abdominal pain or shortness of breath. Workup Initiated. - Reevaluation(s) Reevaluation #1: Patient elevated white count of 21. Urinalysis is consistent with hematuria and possible urinary tract infection. Additionally is tachycardic. He does have a history of atrial fibrillation but EKG she shows sinus rhythm. Discussed with Dr. Gunn who advised for admission, urine cx, metoprolol . Patient has history CKD, and is on Lasix. At this point we will order a half liter bolus, and IV Rocephin, cultures and lactic acid. Will plan for admission. We will plan to admit for leukocytosis, hematuria, tachycardia. Time: 02:49 Reevaluation #2: @4:47 Discussed patient with hospitalist Dr. Delgado who had face time with patient. He has requested a CT abdomen and pelvis noncontrast, advised for additional 500 mL of saline, and will also ultrasound his bladder for urinary retention. Bedside US was attempted but unable to visualize bladder due to body habitus. Time: 04:47 Vital Signs Temperature 98.0 F 09/13/18 21:25 Pulse Rate 129 09/13/18 21:25 Respiratory Rate 18 09/13/18 21:25 Blood Pressure 119/82 09/13/18 21:25 O2 Sat by Pulse Oximetry 95 09/13/18 21:25 Temperature 98.0 F 09/13/18 21:25 Pulse Rate 121 09/14/18 04:16 Respiratory Rate 16 09/14/18 04:16 Blood Pressure 113/79 09/14/18 04:16 O2 Sat by Pulse Oximetry 98 09/14/18 04:16 Oxygen Delivery Oxygen Delivery Room Air Medical Decision Making - [facility] Narrative Medical decision making narrative: Patient presented with onset of hematuria earlier in the day. He denies any abdominal pain or flank pain. He was shown to have a leukocytosis, urinalysis consistent with hematuria and UTI. Additionally he was tachycardic. He is on metoprolol and does have history of A. fib. Patient was discussed with attending Dr. Gunn also placed on patient agreed with workup and disposition. Patient was accepted by hospitalist. Chest X-Ray 09/14/18 03:34 IMPRESSION: No acute findings D/ / Yamila Perdomo MD / Yamila Perdomo MD Interpreting Provider: Yamila Perdomo MD Abdomen/Pelvis CT 09/14/18 04:49 IMPRESSION: Mild inflammatory stranding is seen about the bladder and kidneys. Consider cystitis/pyelonephritis given patient history of dysuria. Suggest correlation with urinalysis. Diverticulosis. Small pericardial effusion. Sequela of granulomatous disease. D/ / Johnny Morales MD / Johnny Morales MD Interpreting Provider: Johnny Morales MD Laboratory Tests 09/13/18 09/14/18 09/14/18 21:20 01:42 01:42 WBC 21.2 H RBC 4.05 L Hgb 13.5 Hct 40.8 MCV 100.7 H MCH 33.3 MCHC 33.1 RDW 12.4 Plt Count 284 MPV 11.0 Immature Gran % 0.6 Seg Neutrophils % 84.9 Lymphocytes % 4.7 Monocytes % 9.3 Eosinophils % 0.2 Basophils % 0.3 Neutrophils # 18.0 H Lymphocytes # 1.0 Monocytes # 2.0 H Eosinophils # 0.1 Basophils # 0.1 PT INR APTT Sodium 135 L Potassium 5.0 Chloride 102 Carbon Dioxide 24 BUN 47 H Creatinine 2.27 H Est GFR ( Amer) 36 L Est GFR (Non-Af Amer) 29 L BUN/Creatinine Ratio 21 Glucose 228 H Calculated Osmolality 299 Calcium 9.5 Urine Color Red A Urine Clarity Cloudy A Urine pH 6.0 Ur Specific [place] 1.005 L Urine Protein >=300 H Urine Glucose (UA) Normal Urine Ketones Negative Urine Blood Large H Urine Nitrite Negative Urine Bilirubin Negative Urine Urobilinogen Normal Ur Leukocyte Esterase Large H Ur Culture Indicated? YES A 09/14/18 01:42 WBC RBC Hgb Hct MCV MCH MCHC RDW Plt Count MPV Immature Gran % Seg Neutrophils % Lymphocytes % Monocytes % Eosinophils % Basophils % Neutrophils # Lymphocytes # Monocytes # Eosinophils # Basophils # PT 15.2 H INR 1.4 APTT 35.0 Sodium Potassium Chloride Carbon Dioxide BUN Creatinine Est GFR ( Amer) Est GFR (Non-Af Amer) BUN/Creatinine Ratio Glucose Calculated Osmolality Calcium Urine Color Urine Clarity Urine pH Ur Specific [place] Urine Protein Urine Glucose (UA) Urine Ketones Urine Blood Urine Nitrite Urine Bilirubin Urine Urobilinogen Ur Leukocyte Esterase Ur Culture Indicated? - Lab Data Lab results reviewed: Yes I reviewed the patient's lab results. Result diagrams: 09/14/18 01:42 09/14/18 01:42 Lab Results 09/13/18 09/14/18 09/14/18 Range/Units 21:20 01:42 01:42 WBC 21.2 H (4.3-11.1) K/mcL RBC 4.05 L (4.19-5.50) M/mcL Hgb 13.5 (12.9-16.9) g/dL Hct 40.8 (37.5-50.1) % MCV 100.7 H (83.0-100.0) fL MCH 33.3 (28.0-33.3) pg MCHC 33.1 (31.6-35.5) g/dL RDW 12.4 (11.5-14.5) % Plt Count 284 (140-400) K/mcL MPV 11.0 (9.4-12.4) fL Immature Gran % 0.6 (0-4) % Seg Neutrophils % 84.9 % Lymphocytes % 4.7 % Monocytes % 9.3 % Eosinophils % 0.2 % Basophils % 0.3 % Neutrophils # 18.0 H (1.6-8.9) K/mcL Lymphocytes # 1.0 (0.6-4.6) K/mcL Monocytes # 2.0 H (0.0-1.3) K/mcL Eosinophils # 0.1 (0.0-0.6) K/mcL Basophils # 0.1 (0.0-0.2) K/mcL PT (9.4-12.1) Seconds INR APTT (26.0-36.0) Seconds Sodium 135 L (136-145) mEq/L Potassium 5.0 (3.5-5.1) mEq/L Chloride 102 (98-107) mEq/L Carbon Dioxide 24 (23-29) mEq/L BUN 47 H (8-23) mg/dL Creatinine 2.27 H (0.70-1.30) mg/dL Est GFR ( Amer) 36 L (> 60) Est GFR (Non-Af Amer) 29 L (> 60) BUN/Creatinine Ratio 21 (6-26) Glucose 228 H (70-105) mg/dL Calculated Osmolality 299 (280-300) Calcium 9.5 (8.6-10.3) mg/dL Urine Color Red A (Yellow) Urine Clarity Cloudy A (Clear) Urine pH 6.0 (5.0-8.0) pH Units Ur Specific [place] 1.005 L (1.010-1.025) Urine Protein >=300 H (Neg-Trace) mg/dL Urine Glucose (UA) Normal (Normal) mg/dL Urine Ketones Negative (Negative) mg/dL Urine Blood Large H (Negative) Urine Nitrite Negative (Negative) Urine Bilirubin Negative (Negative) Urine Urobilinogen Normal (Normal) mg/dL Ur Leukocyte Esterase Large H (Negative) Ur Culture Indicated? YES A (NO) 09/14/18 Range/Units 01:42 WBC (4.3-11.1) K/mcL RBC (4.19-5.50) M/mcL Hgb (12.9-16.9) g/dL Hct (37.5-50.1) % MCV (83.0-100.0) fL MCH (28.0-33.3) pg MCHC (31.6-35.5) g/dL RDW (11.5-14.5) % Plt Count (140-400) K/mcL MPV (9.4-12.4) fL Immature Gran % (0-4) % Seg Neutrophils % % Lymphocytes % % Monocytes % % Eosinophils % % Basophils % % Neutrophils # (1.6-8.9) K/mcL Lymphocytes # (0.6-4.6) K/mcL Monocytes # (0.0-1.3) K/mcL Eosinophils # (0.0-0.6) K/mcL Basophils # (0.0-0.2) K/mcL PT 15.2 H (9.4-12.1) Seconds INR 1.4 APTT 35.0 (26.0-36.0) Seconds Sodium (136-145) mEq/L Potassium (3.5-5.1) mEq/L Chloride (98-107) mEq/L Carbon Dioxide (23-29) mEq/L BUN (8-23) mg/dL Creatinine (0.70-1.30) mg/dL Est GFR ( Amer) (> 60) Est GFR (Non-Af Amer) (> 60) BUN/Creatinine Ratio (6-26) Glucose (70-105) mg/dL Calculated Osmolality (280-300) Calcium (8.6-10.3) mg/dL Urine Color (Yellow) Urine Clarity (Clear) Urine pH (5.0-8.0) pH Units Ur Specific [place] (1.010-1.025) Urine Protein (Neg-Trace) mg/dL Urine Glucose (UA) (Normal) mg/dL Urine Ketones (Negative) mg/dL Urine Blood (Negative) Urine Nitrite (Negative) Urine Bilirubin (Negative) Urine Urobilinogen (Normal) mg/dL Ur Leukocyte Esterase (Negative) Ur Culture Indicated? (NO) - Radiology Data Radiology results reviewed: Yes I reviewed the patient's radiology results.
[2018-09-14 02:18] LABS: Basophils # 0.1 K/mcL (0.0-0.2); Basophils % 0.3 %; Eosinophils # 0.1 K/mcL (0.0-0.6); Eosinophils % 0.2 %; Hematocrit 40.8 % (37.5-50.1); Hemoglobin 13.5 g/dL (12.9-16.9); Immature Granulocytes % 0.6 % (0-4); Lymphocytes % 4.7 %; Mean Corpuscular HGB Conc 33.1 g/dL (31.6-35.5); Mean Corpuscular Hemoglobin 33.3 pg (28.0-33.3); Mean Corpuscular Volume 100.7 fL (83.0-100.0); Monocytes % 9.3 %; Platelet Count 284 K/mcL (140-400); Red Blood Count 4.05 M/mcL (4.19-5.50); Red Cell Distribution Width 12.4 % (11.5-14.5); Segmented Neutrophils % 84.9 %
[2018-09-14 02:27] LABS: INR 1.4; Prothrombin Time 15.2 Seconds (9.4-12.1)
[2018-09-14 02:29] LABS: Calcium 9.5 mg/dL (8.6-10.3)
[2018-09-14] MEDS ORDERED: 0.9 % Sodium Chloride 500 ML IVC ONE ×2 (02:47→04:49)
[2018-09-14] MEDS ORDERED: cefTRIAXone 1,000 MG in Water for inj. (sterile) 20 ML 10 ML IVP ONE (02:52)
[2018-09-14] MEDS ORDERED: *HR* HYDROcodone/Acet 5/325 mg TABLET PO ONE (02:59)
[2018-09-14] MEDS ORDERED: Ondansetron 4 MG/2 ML VIAL IVP ONE (03:30)
[2018-09-14] MEDS ORDERED: Ondansetron 4 MG/2 ML VIAL IVP PRN (05:08)
[2018-09-14] MEDS ORDERED: Naloxone 0.4 MG/ML INJ IVP PRN (05:08)
[2018-09-14] MEDS ORDERED: 0.9 % Sodium Chloride 1,000 ML IVC SCH (05:15)
--- NOTE | 2018-09-14 05:15 | Internal Med History&Physical ---
Date of Encounter: 09/14/18 Time of Encounter: 05:14 Internal Medicine - H&P: HPI Chief complaint: Hematuria History of present illness: Mr. Connell is a 62 year old male with a past medical history of atrial fibrillation on anticoagulation, COPD, history of CVA, diabetes, hyperlipidemia, hypertension and stage III chronic kidney disease who presented to the ED after an episode of gross hematuria. Patient states that he was in his usual state of health at home. He had noted he was having difficulty voiding earlier that morning with only minute amounts of dribble coming out at a time. Around 12:30 patient went to void and again had difficulty but noticed that his urine was bright red. Patient subsequently came in for further evaluation. Patient otherwise denies any fever, chills, flank pain or dysuria. No reports of cough, shortness of breath, chest pain, nausea, vomiting or diarrhea. On arrival, patient was afebrile and normotensive. Heart rate was in the 120s. EKG indicated sinus rhythm however there was irregularity concerning for atrial fibrillation. Laboratory workup was notable for a leukocytosis of 21.2, creatinine of 2.27 and UA showing large leukocyte esterase. A CT scan of the abdomen and pelvis was performed showing mild inflammatory stranding seen about the kidneys and bladder concerning for cystitis/pyelonephritis. Patient was given a total of 1 L bolus in the ED. Urine cultures are obtained and patient was started on ceftriaxone. Lactic acid Pending. Past Med Surg Social Fam HX - Past Medical History Medical history: arthritis, atrial fibrillation, COPD, CVA, diabetes, hyperlipidemia, hypertension, myocardial infarction, renal disease, other Psychiatric history: no psych history - Past Surgical History Surgical History: other (Cardiac catheterization) Additional surgical history: heart cath 2013. full upper dental extraction - Social History Smoking Status: Former smoker Smokeless Tobacco Status: No Alcohol use: rarely Drug use: none - Family History Father Living Status: Hx Family Cardiac Disorders: Yes ([place]) Hx Family Respiratory Disorders: No Hx Family Cancer: No Hx Family GI Disorders: No Hx Family Endocrine Disorder: No Hx Family Neuromuscular Disorders: No Hx Family Neurologic Disorders: No Hx Family HEENT Disorders: No Hx Family Autoimmune Disorders: No Internal Medicine - H&P: Meds Insulin Glargine [Lantus] 35 unit SQ HS 07/03/15 [History] Insulin Glargine [Lantus] 45 unit SQ DAILY 07/03/15 [History] Aspirin [Lo-Dose Aspirin EC] 81 mg PO DAILY 06/10/16 [History] Atorvastatin [Lipitor] 40 mg PO DAILY 07/26/16 [History] Lisinopril [Zestril] 10 mg PO DAILY 07/26/16 [History] Albuterol Sulfate [Albuterol Inhaler] 2 puff IH DAILY 08/03/16 [History] Cholecalciferol (Vitamin D3) [Vitamin D3] 50,000 unit PO NORIEGA 08/03/16 [History] Liraglutide [Victoza 2-Henry] 1.8 mg SQ DAILY 08/03/16 [History] Rivaroxaban [Xarelto] 20 mg PO DAILY 08/03/16 [History] HYDROcodone/Acet 5/325 mg [[place] 5-325 mg] 1 tab PO Q12H PRN 04/17/18 [History] Pioglitazone HCl 45 mg PO DAILY 04/17/18 [History] Metoprolol [Lopressor] 50 mg PO BID #60 tablet 04/26/18 [Rx] metOLazone [Zaroxolyn] 10 mg PO DAILY #60 tablet 04/26/18 [Rx] Allergy/AdvReac Type Severity Reaction Status Date / Time No Known Allergies Allergy Verified 09/12/16 14:29 All Systems PM: A 10-system review of systems was performed and is negative for pertinent findings except as documented above in the HPI. - Constitutional Constitutional: no chills, no fever(s), no night sweats - EENT Eyes: no change in vision, no discharge, no pain, no photophobia Ears: no ear discharge, no ear pain, no tinnitus Nose, mouth and throat: no dysphagia, no nasal discharge, no neck pain, no sore throat - Cardiovascular Cardiovascular ROS IM: no chest pain, no diaphoresis, no dyspnea, no lightheadedness, no palpitations, no syncope - Respiratory Respiratory: no cough, no dyspnea, no wheezing, no excessive phlegm production - Gastrointestinal Gastrointestinal: no abdominal pain, no diarrhea, no hematemesis, no hematochezia, no melena, no nausea, no vomiting - Musculoskeletal Musculoskeletal ROS IM: no numbness, no tingling - Integumentary Integumentary IM: no rash, no unusual bruising - Neurological Neurological ROS: no confusion, no convulsions, no focal weakness, no numbness, no tingling, no tremor(s) - Hematologic/Lymphatic Hematologic/Lymphatic: no easy bruising - Constitutional Vitals: Temp Pulse Resp BP Pulse Ox 98.0 F 121 16 113/79 98 09/13/18 21:25 09/14/18 04:16 09/14/18 04:16 09/14/18 04:16 09/14/18 04:16 Exam: General: Alert and oriented 3 lying in bed in no acute distress Skin:Normal color, no rash, no lesions. HEENT:EOM, pupils equal, round and reactive. Cardiovascular:Normal S1 & S2, no rubs, murmurs or gallops. No JVD. Pulse regular. Lungs:Normal breath sounds, no wheezes or crackles. Abdomen:Soft, non-tender, no rigidity. Extremities:No deformity, no edema or tenderness, no joint swelling or clubbing. Neurological:Normal cognition and motor skills. Pulses:Carotid and radial pulses normal +2. Rest of the physical exam is non contributory Internal Med - H&P Results - Labs CBC & Chem 7: 09/14/18 01:42 09/14/18 01:42 Labs: Short CBC 09/14/18 Range/Units 01:42 WBC 21.2 H (4.3-11.1) K/mcL Hgb 13.5 (12.9-16.9) g/dL Hct 40.8 (37.5-50.1) % Plt Count 284 (140-400) K/mcL Neutrophils # 18.0 H (1.6-8.9) K/mcL BMP 09/14/18 01:42 Sodium 135 L Potassium 5.0 Chloride 102 Carbon Dioxide 24 BUN 47 H Creatinine 2.27 H Glucose 228 H Calcium 9.5 Urine 09/13/18 Range/Units 21:20 Urine Color Red A (Yellow) Urine Clarity Cloudy A (Clear) Urine pH 6.0 (5.0-8.0) pH Units Ur Specific [place] 1.005 L (1.010-1.025) Urine Protein >=300 H (Neg-Trace) mg/dL Urine Glucose (UA) Normal (Normal) mg/dL - Impressions ITS Impressions Chest X-Ray 09/14/18 03:34 IMPRESSION: No acute findings D/ / Yamila Perdomo MD / Yamila Perdomo MD Interpreting Provider: Yamila Perdomo MD Abdomen/Pelvis CT 09/14/18 04:49 IMPRESSION: Mild inflammatory stranding is seen about the bladder and kidneys. Consider cystitis/pyelonephritis given patient history of dysuria. Suggest correlation with urinalysis. Diverticulosis. Small pericardial effusion. Sequela of granulomatous disease. D/ / Johnny Morales MD / Johnny Morales MD Interpreting Provider: Johnny Morales MD - Assessment and Plan (1) Hematuria Current Visit: Yes Status: Acute Assessment and plan: Patient presenting with gross hematuria in the setting of difficulty urinating, leukocytosis and CT scan findings concerning for cystitis/pyelonephritis. Suspect secondary to UTI and increased risk of bleeding on Xarelto. Hemoglobin remains stable. -Continue ceftriaxone for possible cystitis/pyelonephritis -We will hold Xarelto for now. -Consult to urology given patient's difficulty voiding. Qualifiers: Hematuria type: unspecified type Qualified Code(s): R31.9 - Hematuria, unspecified (2) Urinary tract infection Current Visit: Yes Status: Acute Assessment and plan: Patient presenting with gross hematuria and CT scan findings concerning for cystitis/pyelonephritis. -Continue with Rocephin -Follow-up urine cultures. Qualifiers: Qualified Code(s): N39.0 - Urinary tract infection, site not specified; R31.9 - Hematuria, unspecified (3) Leukocytosis Current Visit: Yes Status: Acute Assessment and plan: Neutrophilic Leukocytosis likely secondary to urinary tract infection. Continue ceftriaxone. monitor Qualifiers: Leukocytosis type: unspecified Qualified Code(s): D72.829 - Elevated white blood cell count, unspecified (4) Atrial fibrillation Current Visit: Yes Status: Acute Assessment and plan: History of atrial fibrillation rate controlled on anticoagulation. Patient presented with a heart rate in the 120s. Review of EKG indicates sinus rhythm however there are intermittent irregular intervals and there is difficulty discerning P waves. I suspect this is more likely atrial fibrillation. Will give morning beta rodney for now and 5 mg of Lopressor as needed IV push. Qualifiers: Atrial fibrillation type: chronic Qualified Code(s): I48.2 - Chronic atrial fibrillation (5) Sepsis Current Visit: Yes Status: Acute Assessment and plan: Possible sepsis with elevated white count and tachycardia in the setting of UTI. However unclear whether tachycardia secondary to atrial fibrillation versus sinus tachycardia. -Continue with fluid hydration -Follow up lactic acid -Continue antibiotics -Blood cultures were not obtained prior to initiation antibiotics. Urine cultures are pending. Qualifiers: Sepsis type: sepsis due to unspecified organism Qualified Code(s): A41.9 - Sepsis, unspecified organism (6) CKD (chronic kidney disease) stage 3, GFR 30-59 ml/min Current Visit: No Status: Chronic Assessment and plan: Stage III chronic kidney disease. Appears to be at baseline. We will continue to monitor. (7) DVT prophylaxis Current Visit: No Status: Acute Assessment and plan: Pneumatic compression devices - Time Spent With Patient Total time spent is greater than 50% in coordination of care (as documented) at patient's floor/unit and/or counseling patient:
[2018-09-14] MEDS ORDERED: D5% in Water 1,000 ML IVC PRN (06:23)
[2018-09-14] MEDS ORDERED: Dextrose Gel 15 GM/37.5 ML TUBE PO PRN ×2 (06:23)
[2018-09-14] MEDS ORDERED: *HR* Dextrose 50 % in Water (Syg) 50 ML SYRINGE IVP PRN (06:23)
[2018-09-14] MEDS ORDERED: *HR* Metoprolol 5 MG/5 ML VIAL IVP PRN (06:24)
[2018-09-14] MEDS: Insulin LISPRO 300 UNITS/3 ML VIAL SQ SCH ×3 (08:28→16:28)
--- NOTE | 2018-09-14 09:50 | Internal Med Progress Note ---
<Paulino Lam - Last Filed: 09/14/18 13:33> Hospitalist Progress Note - Encounter Date of Encounter: 09/14/18 Time of Encounter: 09:34 - Subjective Interval History: Patient seen and examined at bedside. He states that he has not been able to urinate well this morning. He states that every time he gets up to go to the bathroom, there is only a small amount of urine dribbles out. He does not feel any pain when he tries to urinate. Denies suprapubic pain. States that this has never happened before. He notes that he has not been drinking much since this started. He does have a known history of congestive heart failure, and has been taking Lasix 20 mg daily. Otherwise has no complaints. - Exam Vitals: Temp Pulse Resp BP Pulse Ox 98.0 F 83 16 97/66 94 09/14/18 07:07 09/14/18 07:07 09/14/18 07:07 09/14/18 07:07 09/14/18 07:07 Exam: General: A&O X3, conversant, obese, no acute distress Head: atraumatic, normocephalic Eye: PERRL, EOMI, conjuntiva pink, sclera anicteric Neck: Supple, trachea midline; No lymphadenopathy Respiratory: CTAB. No accessory muscle use, wheezes, rales, or rhonchi Cardiovascular: Irregularly irregular, +S1, +S2; no murmurs, rubs, gallops Abdomen: Soft, nontender Extremities: warm, radial pulses palpable and symmetrical Psychiatric: Normal affect, normal mood Skin: Dry, intact - Assessment and Plan (1) Hematuria Current Visit: Yes Status: Acute Assessment and Plan: ASSESSMENT - Initially presented with gross hematuria with difficulty urinating - Unknown etiology at this time - Hemoglobin is stable at 13.5 - CT scan abd/pelv 09/14/18: Mild inflammatory stranding around bladder and kidneys, diverticulosis, small pericardial effusion, sequela of granulomatous disease PLAN - Urology consulted; would appreciate recommendations - IV fluid hydration with normal saline at 75 mL per hour - Xarelto is being held - Will order bladder scan (2) Urinary tract infection Current Visit: Yes Status: Acute Assessment and Plan: ASSESSMENT - Urinalysis on presentation demonstrated a large amount of leukocyte esterase, large amount of blood, and greater than 300 urine protein - Causative organism is unknown at this time - Urine cultures ordered and is currently pending - White count is elevated at 21.2 - Lactic acid pending PLAN - Rocephin 1 g every 24 hours; day 1 (3) Sepsis Current Visit: Yes Status: Acute Assessment and Plan: ASSESSMENT - Presented with 2 out of 4 SIRS criteria with tachycardia and leukocytosis in the setting of UTI - Blood cultures were not obtained prior to antibiotic initiation - CXR 09/14/18: Cardiac silhouette enlarged, no acute bony abnormality, clear lung [place] PLAN - Urine cultures ordered and are currently pending - Lactic acid is pending - Continue Rocephin as above (4) Atrial fibrillation Current Visit: Yes Status: Acute Assessment and Plan: ASSESSMENT - Patient has a known history of atrial fibrillation - Normally takes metoprolol and Xarelto - Xarelto is being held for hematuria - Continue to monitor vital signs (5) CKD (chronic kidney disease) stage 3, GFR 30-59 ml/min Current Visit: No Status: Chronic Assessment and Plan: ASSESSMENT - Creatinine elevated at 2.27, GFR is 29 - Per chart review, patients baseline creatinine appears to be between 2 and 2. 5 (6) DVT prophylaxis Current Visit: No Status: Acute Assessment and Plan: ASSESSMENT - Pneumatic compression devices - Time Spent with Patient Total time spent is greater than 50% in coordination of care (as documented) at patient's floor/unit and/or counseling patient: Internal Medicine: Result - Labs CBC & Chem 7: 09/14/18 01:42 09/14/18 01:42 Labs: Short CBC 09/14/18 Range/Units 01:42 WBC 21.2 H (4.3-11.1) K/mcL Hgb 13.5 (12.9-16.9) g/dL Hct 40.8 (37.5-50.1) % Plt Count 284 (140-400) K/mcL Neutrophils # 18.0 H (1.6-8.9) K/mcL BMP 09/14/18 01:42 Sodium 135 L Potassium 5.0 Chloride 102 Carbon Dioxide 24 BUN 47 H Creatinine 2.27 H Glucose 228 H Calcium 9.5 Urine 09/13/18 Range/Units 21:20 Urine Color Red A (Yellow) Urine Clarity Cloudy A (Clear) Urine pH 6.0 (5.0-8.0) pH Units Ur Specific [place] 1.005 L (1.010-1.025) Urine Protein >=300 H (Neg-Trace) mg/dL Urine Glucose (UA) Normal (Normal) mg/dL - ABG Interpretation ABG results: PT/INR, D-dimer PT 15.2 Seconds (9.4-12.1) H 09/14/18 01:42 - Impressions Impressions Chest X-Ray 09/14/18 03:34 IMPRESSION: No acute findings D/ / Yamila Perdomo MD / Yamila Perdomo MD Interpreting Provider: Yamila Perdomo MD Abdomen/Pelvis CT 09/14/18 04:49 IMPRESSION: Mild inflammatory stranding is seen about the bladder and kidneys. Consider cystitis/pyelonephritis given patient history of dysuria. Suggest correlation with urinalysis. Diverticulosis. Small pericardial effusion. Sequela of granulomatous disease. D/ / Johnny Morales MD / Johnny Morales MD Interpreting Provider: Johnny Morales MD Consult Discharge Plan - Plan Referrals: Lissett Sanders CNP [Primary Care Provider] - <Foster Prado - Last Filed: 09/14/18 13:49> Hospitalist Progress Note - Encounter Date of Encounter: 09/14/18 - Exam Vitals: Temp Pulse Resp BP Pulse Ox 97.4 F L 85 16 111/73 95 09/14/18 11:00 09/14/18 11:00 09/14/18 11:00 09/14/18 11:00 09/14/18 11:00 - Assessment and Plan (1) CKD (chronic kidney disease) stage 3, GFR 30-59 ml/min Current Visit: No Status: Chronic (2) DVT prophylaxis Current Visit: No Status: Acute (3) Leukocytosis Current Visit: Yes Status: Acute (4) Hematuria Current Visit: Yes Status: Acute (5) Urinary tract infection Current Visit: Yes Status: Acute (6) Atrial fibrillation Current Visit: Yes Status: Acute (7) Sepsis Current Visit: Yes Status: Acute - Time Spent with Patient Total time spent is greater than 50% in coordination of care (as documented) at patient's floor/unit and/or counseling patient: Internal Medicine: Result - Labs CBC & Chem 7: 09/14/18 01:42 09/14/18 01:42 Labs: Short CBC 09/14/18 Range/Units 01:42 WBC 21.2 H (4.3-11.1) K/mcL Hgb 13.5 (12.9-16.9) g/dL Hct 40.8 (37.5-50.1) % Plt Count 284 (140-400) K/mcL Neutrophils # 18.0 H (1.6-8.9) K/mcL BMP 09/14/18 01:42 Sodium 135 L Potassium 5.0 Chloride 102 Carbon Dioxide 24 BUN 47 H Creatinine 2.27 H Glucose 228 H Calcium 9.5 Urine 09/13/18 Range/Units 21:20 Urine Color Red A (Yellow) Urine Clarity Cloudy A (Clear) Urine pH 6.0 (5.0-8.0) pH Units Ur Specific [place] 1.005 L (1.010-1.025) Urine Protein >=300 H (Neg-Trace) mg/dL Urine Glucose (UA) Normal (Normal) mg/dL - ABG Interpretation ABG results: PT/INR, D-dimer PT 15.2 Seconds (9.4-12.1) H 09/14/18 01:42 - Impressions Impressions Chest X-Ray 09/14/18 03:34 IMPRESSION: No acute findings D/ / Yamila Perdomo MD / Yamila Perdomo MD Interpreting Provider: Yamila Perdomo MD Abdomen/Pelvis CT 09/14/18 04:49 IMPRESSION: Mild inflammatory stranding is seen about the bladder and kidneys. Consider cystitis/pyelonephritis given patient history of dysuria. Suggest correlation with urinalysis. Diverticulosis. Small pericardial effusion. Sequela of granulomatous disease. D/ / Johnny Morales MD / Johnny Morales MD Interpreting Provider: Johnny Morales MD - Attending Attestation I examined this patient and my medical decision-making was reviewed with the Resident Physician. I agree with the documented findings, disposition and treatment plan as described except to the extent set forth below. Hemodynamically stable now. Hold Xarelto until hematuria improves. Continue Antibiotics, await cultures. DC IV fluids. ____ <Paulino Lam - Last Filed: 09/14/18 13:33> (1) Hematuria Qualifiers: Hematuria type: unspecified type Qualified Code(s): R31.9 - Hematuria, unspec ified (2) Urinary tract infection Qualifiers: Qualified Code(s): N39.0 - Urinary tract infection, site not specified; R31.9 - Hematuria, unspecified (3) Sepsis Qualifiers: Sepsis type: sepsis due to unspecified organism Qualified Code(s): A41.9 - Sepsis, unspecified organism (4) Atrial fibrillation Qualifiers: Atrial fibrillation type: chronic Qualified Code(s): I48.2 - Chronic atrial fibrillation <Foster Prado - Last Filed: 09/14/18 13:49> (3) Leukocytosis Qualifiers: Leukocytosis type: unspecified Qualified Code(s): D72.829 - Elevated white blood cell count, unspecified (4) Hematuria Qualifiers: Hematuria type: unspecified type Qualified Code(s): R31.9 - Hematuria, unspecified (5) Urinary tract infection Qualifiers: Qualified Code(s): N39.0 - Urinary tract infection, site not specified; R31.9 - Hematuria, unspecified (6) Atrial fibrillation Qualifiers: Atrial fibrillation type: chronic Qualified Code(s): I48.2 - Chronic atrial fibrillation (7) Sepsis Qualifiers: Sepsis type: sepsis due to unspecified organism Qualified Code(s): A41.9 - Sepsis, unspecified organism
--- NOTE | 2018-09-14 10:57 | Urology - Consult Note ---
Date of Encounter: 09/14/18 Time of Encounter: 10:55 - Assessment and Plan (1) Hematuria Current Visit: Yes Status: Acute Assessment and plan: CT images reviewed and interpreted independently. Patient with some chills but no fevers. UA positive with culture pending. White count elevated to 21. Patient with bothersome Ber[place] tract symptoms including urinary frequency voiding small amounts. No upper tract obstruction via CT. No urinary retention via CT. Hematuria most likely secondary to UTI and anticoagulation. Patient reports urine clearing with anticoagulation on hold. Plan: Antibiotic management per primary service. Resume anticoagulation when urine clear. My office will arrange for outpatient evaluation of the lower urinary tract via cystoscopy in 2-3 weeks time. No current indications for urologic procedural interventions. Qualifiers: Hematuria type: unspecified type Qualified Code(s): R31.9 - Hematuria, unspecified (2) Anticoagulation adequate Current Visit: Yes Status: Acute Assessment and plan: Chronic anticoagulation as potentiated current hematuria in setting of active UTI. Anticoagulation complicates recommended office-based cystoscopy. Plan: Resume anticoagulation when urine clear. (3) Lower urinary tract symptoms Current Visit: Yes Status: Acute Assessment and plan: Typical irritative lower urinary tract symptoms from UTI including urinary frequency with voiding small amounts. Patient does not have obstructive symptoms. CT shows no distention of bladder. No indications for Flores catheter placement. Plan: Anticipate spontaneous resolution of lower urinary tract symptoms with eradication of UTI. My office will arrange for outpatient evaluation of the lower urinary tract via cystoscopy in the coming weeks. (4) Urinary tract infection Current Visit: Yes Status: Acute Assessment and plan: Positive UA, elevated white count and lower urinary tract symptoms consistent with UTI. Upper tracts normal via CT. No urinary retention via CT. Plan: Culture specific antibiotics as per primary service. My office will arrange for outpatient evaluation of the lower urinary tract by cystoscopy in the coming weeks. Qualifiers: Qualified Code(s): N39.0 - Urinary tract infection, site not specified; R31.9 - Hematuria, unspecified (5) Acute kidney injury superimposed on CKD Current Visit: No Status: Acute Urology CN:HPI Consult date: 09/14/18 Reason for consult Urology: Gross Hematuria Requesting physician: Preston Delgado History of present illness: Mr. Connell is a 62 year old male with a past medical history of atrial fibrillation on anticoagulation, COPD, history of CVA, diabetes, hyperlipidemia, hypertension and stage III chronic kidney disease who presented to the ED after an episode of gross hematuria. Patient states that he was in his usual state of health at home. He had noted he was having difficulty voiding earlier that morning with only minute amounts of dribble coming out at a time. Around 12:30 patient went to void and again had difficulty but noticed that his urine was bright red. Patient subsequently came in for further evaluation. Patient otherwise denies any fever, chills, flank pain or dysuria. No reports of cough, shortness of breath, chest pain, nausea, vomiting or diarrhea. On arrival, patient was afebrile and normotensive. Heart rate was in the 120s. EKG indicated sinus rhythm however there was irregularity concerning for atrial fibrillation. Laboratory workup was notable for a leukocytosis of 21.2, creatinine of 2.27 and UA showing large leukocyte esterase. A CT scan of the abdomen and pelvis was performed showing mild inflammatory stranding seen about the kidneys and bladder concerning for cystitis/pyelonephritis. Patient was given a total of 1 L bolus in the ED. Urine cultures are obtained and patient was started on ceftriaxone. Lactic acid Pending. We are asked to see the patient consultation for hematuria and lower urinary tract symptoms Past Med Surg Social Fam HX - Past Medical History Medical history: arthritis, atrial fibrillation, COPD, CVA, diabetes, hyperlipidemia, hypertension, myocardial infarction, renal disease, other Psychiatric history: no psych history - Past Surgical History Surgical History: other (Cardiac catheterization) Additional surgical history: heart cath 2013. full upper dental extraction - Social History Smoking Status: Former smoker Smokeless Tobacco Status: No Alcohol use: rarely Drug use: none - Family History Father Living Status: Hx Family Cardiac Disorders: Yes ([place]) Hx Family Respiratory Disorders: No Hx Family Cancer: No Hx Family GI Disorders: No Hx Family Endocrine Disorder: No Hx Family Neuromuscular Disorders: No Hx Family Neurologic Disorders: No Hx Family HEENT Disorders: No Hx Family Autoimmune Disorders: No Medications and Allergies Insulin Glargine [Lantus] 35 unit SQ HS 07/03/15 [History] Insulin Glargine [Lantus] 45 unit SQ DAILY 07/03/15 [History] Aspirin [Lo-Dose Aspirin EC] 81 mg PO DAILY 06/10/16 [History] Atorvastatin [Lipitor] 40 mg PO DAILY 07/26/16 [History] Lisinopril [Zestril] 10 mg PO DAILY 07/26/16 [History] Albuterol Sulfate [Albuterol Inhaler] 2 puff IH DAILY 08/03/16 [History] Cholecalciferol (Vitamin D3) [Vitamin D3] 50,000 unit PO NORIEGA 08/03/16 [History] Liraglutide [Victoza 2-Henry] 1.8 mg SQ DAILY 08/03/16 [History] Rivaroxaban [Xarelto] 20 mg PO DAILY 08/03/16 [History] HYDROcodone/Acet 5/325 mg [[place] 5-325 mg] 1 tab PO Q12H PRN 04/17/18 [History] Pioglitazone HCl 45 mg PO DAILY 04/17/18 [History] Metoprolol [Lopressor] 50 mg PO BID #60 tablet 04/26/18 [Rx] metOLazone [Zaroxolyn] 10 mg PO DAILY #60 tablet 04/26/18 [Rx] Allergy/AdvReac Type Severity Reaction Status Date / Time No Known Allergies Allergy Verified 09/12/16 14:29 Review of Systems - Constitutional chills, no fever(s) - EENT Nose, mouth and throat: no dizziness, no headache(s) - Cardiovascular no chest pain, no diaphoresis - Gastrointestinal no abdominal pain, no fecal incontinence - Genitourinary hematuria, no flank pain - Musculoskeletal no back pain, no muscle weakness - Integumentary no lesions, no rash - Neurological no confusion, no sensory deficit - Psychiatric no anxiety, no confusion - Hematologic/Lymphatic no easy bleeding, no easy bruising - Allergic/Immunologic no throat swelling, no wheezing Exam Initial Vital Signs Temp Pulse Resp BP Pulse Ox 98.0 F 129 18 119/82 95 09/13/18 21:25 09/13/18 21:25 09/13/18 21:25 09/13/18 21:25 09/13/18 21:25 - General physical appearance Present: well nourished, no distress - Eyes Present: normal ocular movement. Absent: icteric - ENT Present: normal mucosa, no hearing loss - Neck Present: trachea midline - Respiratory Present: normal respiratory effort - Abdomen Abdomen: Absent: tender - Integumentary Present: no growths, no abnormal pigmentation - Neurologic Present: normal coordination - Musculoskeletal Present: other (moves extremities bilaterally) Urology Results - Labs 09/14/18 01:42 09/14/18 01:42 Abnormal lab results WBC 21.2 K/mcL (4.3-11.1) H 09/14/18 01:42 RBC 4.05 M/mcL (4.19-5.50) L 09/14/18 01:42 MCV 100.7 fL (83.0-100.0) H 09/14/18 01:42 18.0 K/mcL (1.6-8.9) H 09/14/18 01:42 2.0 K/mcL (0.0-1.3) H 09/14/18 01:42 PT 15.2 Seconds (9.4-12.1) H 09/14/18 01:42 Sodium 135 mEq/L (136-145) L 09/14/18 01:42 BUN 47 mg/dL (8-23) H 09/14/18 01:42 2.27 mg/dL (0.70-1.30) H 09/14/18 01:42 Est GFR ( Amer) 36 (> 60) L 09/14/18 01:42 Est GFR (Non-Af Amer) 29 (> 60) L 09/14/18 01:42 Glucose 228 mg/dL (70-105) H 09/14/18 01:42 POC Glucose 199 mg/dL (70-99) H 09/14/18 07:07 Red (Yellow) A 09/13/18 21:20 Cloudy (Clear) A 09/13/18 21:20 Ur Specific [place] 1.005 (1.010-1.025) L 09/13/18 21:20 >=300 mg/dL (Neg-Trace) H 09/13/18 21:20 Large (Negative) H 09/13/18 21:20 Ur Leukocyte Esterase Large (Negative) H 09/13/18 21:20 Ur Culture Indicated? YES (NO) A 09/13/18 21:20 Diabetes panel 09/14/18 Range/Units 01:42 Sodium 135 L (136-145) mEq/L Potassium 5.0 (3.5-5.1) mEq/L Chloride 102 (98-107) mEq/L Carbon Dioxide 24 (23-29) mEq/L BUN 47 H (8-23) mg/dL Creatinine 2.27 H (0.70-1.30) mg/dL Glucose 228 H (70-105) mg/dL Calcium 9.5 (8.6-10.3) mg/dL Calcium panel 09/14/18 Range/Units 01:42 Calcium 9.5 (8.6-10.3) mg/dL Pituitary panel 09/14/18 Range/Units 01:42 Sodium 135 L (136-145) mEq/L Potassium 5.0 (3.5-5.1) mEq/L Chloride 102 (98-107) mEq/L Carbon Dioxide 24 (23-29) mEq/L BUN 47 H (8-23) mg/dL Creatinine 2.27 H (0.70-1.30) mg/dL Glucose 228 H (70-105) mg/dL Calcium 9.5 (8.6-10.3) mg/dL Adrenal panel 09/14/18 Range/Units 01:42 Sodium 135 L (136-145) mEq/L Potassium 5.0 (3.5-5.1) mEq/L Chloride 102 (98-107) mEq/L Carbon Dioxide 24 (23-29) mEq/L BUN 47 H (8-23) mg/dL Creatinine 2.27 H (0.70-1.30) mg/dL Glucose 228 H (70-105) mg/dL Calcium 9.5 (8.6-10.3) mg/dL All other labs normal. - Imaging CT scan - abdomen: image reviewed CT scan - pelvis: image reviewed (Images of CT abdomen and pelvis reviewed and interpreted independently) Consult Discharge Plan - Plan Referrals: Lissett Sanders, [facility] [Primary Care Provider] -
[2018-09-15] MEDS: cefTRIAXone 1,000 MG in 0.9 % Sodium Chloride Mini Bag 100 ML IVPB SCH ×2 (02:45→02:57)
[2018-09-15] MEDS ORDERED: cefTRIAXone 1,000 MG in Water for inj. (sterile) 20 ML 10 ML IVPB SCH (03:00)
[2018-09-15 08:22] LABS: Basophils # 0.1 K/mcL (0.0-0.2); Basophils % 0.3 %; Eosinophils # 0.3 K/mcL (0.0-0.6); Eosinophils % 1.4 %; Immature Granulocytes % 0.6 % (0-4); Lymphocytes # 1.2 K/mcL (0.6-4.6); Lymphocytes % 6.6 %; Mean Corpuscular HGB Conc 31.9 g/dL (31.6-35.5); Mean Corpuscular Hemoglobin 32.6 pg (28.0-33.3); Mean Corpuscular Volume 102.2 fL (83.0-100.0); Mean Platelet Volume 11.1 fL (9.4-12.4); Monocytes # 1.9 K/mcL (0.0-1.3); Monocytes % 10.2 %; Neutrophils # 14.6 K/mcL (1.6-8.9); Platelet Count 238 K/mcL (140-400); Red Blood Count 3.62 M/mcL (4.19-5.50); Red Cell Distribution Width 12.5 % (11.5-14.5); Segmented Neutrophils % 80.9 %
[2018-09-15 08:35] LABS: Hemoglobin 11.8 g/dL (12.9-16.9)
--- NOTE | 2018-09-15 08:42 | Urology Progress Note ---
<Sary Centeno N - Last Filed: 09/15/18 08:40> Date of Encounter: 09/15/18 Time of Encounter: 08:25 - Assessment and Plan (1) Hematuria Status: Acute Qualifiers: Hematuria type: gross Qualified Code(s): R31.0 - Gross hematuria (2) Urinary tract infection Status: Acute Assessment and plan: Patient is 62-year-old male who presents with a urinary tract infection and gross hematuria. Gross hematuria is resolved. Vital signs are stable and afebrile. White blood cell count improved 18.1. Urine culture appears contaminated. Patient is receiving IV Rocephin with improvement. Recommend an additional 10 days of broad-spectrum oral antibiotic for coverage. Patient is aware he will require an outpatient cystoscopy with Dr. Han within 2-3 weeks of discharge. Qualifiers: Urinary tract infection type: acute cystitis Hematuria presence: with hematuria Qualified Code(s): N30.01 - Acute cystitis with hematuria Progress Note Subjective: no new complaints, feels better Narrative: Patient seen and examined sitting upright in bed in no apparent distress. Patient reports he is voiding well without difficulty. Patient reports urine is clear yellow. Patient denies any frequency, urgency, dysuria, gross hematuria, flank pain, fever or chills. Objective Initial Vital Signs Temp Pulse Resp BP Pulse Ox 98.0 F 129 18 119/82 95 09/13/18 21:25 09/13/18 21:25 09/13/18 21:25 09/13/18 21:25 09/13/18 21:25 - General physical appearance Present: no distress, no pain - Respiratory Present: normal expansion, normal respiratory effort - Abdomen Present: soft, non tender. Absent: distended - Genitourinary Present: other (no CVAT) Urine Appearance: Present: Clear - Integumentary Present: no rash, no abnormal pigmentation - Musculoskeletal Present: normal posture - Psychiatric Present: oriented to time, oriented to person, oriented to place, speech is normal, memory intact - Labs 09/15/18 07:46 09/14/18 01:42 Consult Discharge Plan - Plan Referrals: Johnny Han [Partnered Physician] - 09/29/18 1:00 pm (Please follow up as schedule....) Lissett Sanders CNP [Primary Care Provider] - 09/21/18 9:00 am (Please follow up as schedule...) Prescriptions: Cefdinir [Omnicef] 300 mg PO BID #20 capsule <Paulie Collado - Last Filed: 09/16/18 06:56> Date of Encounter: 09/16/18 - Assessment and Plan (1) Hematuria Status: Acute Qualifiers: Hematuria type: gross Qualified Code(s): R31.0 - Gross hematuria (2) Gross hematuria Status: Acute Assessment and plan: pt seen and examined with PA. agree with A/P. GH resolved. followup as mentioned with Dr Han. Objective Initial Vital Signs Temp Pulse Resp BP Pulse Ox 98.0 F 129 18 119/82 95 09/13/18 21:25 09/13/18 21:25 09/13/18 21:25 09/13/18 21:25 09/13/18 21:25 - Labs 09/15/18 07:46 09/15/18 07:46 Diabetes panel 09/15/18 Range/Units 07:46 Sodium 136 (136-145) mEq/L Potassium 4.6 (3.5-5.1) mEq/L Chloride 105 (98-107) mEq/L Carbon Dioxide 23 (23-29) mEq/L BUN 49 H (8-23) mg/dL Creatinine 2.32 H (0.70-1.30) mg/dL Glucose 152 H (70-105) mg/dL Calcium 8.9 (8.6-10.3) mg/dL Calcium panel 09/15/18 Range/Units 07:46 Calcium 8.9 (8.6-10.3) mg/dL Pituitary panel 09/15/18 Range/Units 07:46 Sodium 136 (136-145) mEq/L Potassium 4.6 (3.5-5.1) mEq/L Chloride 105 (98-107) mEq/L Carbon Dioxide 23 (23-29) mEq/L BUN 49 H (8-23) mg/dL Creatinine 2.32 H (0.70-1.30) mg/dL Glucose 152 H (70-105) mg/dL Calcium 8.9 (8.6-10.3) mg/dL Adrenal panel 09/15/18 Range/Units 07:46 Sodium 136 (136-145) mEq/L Potassium 4.6 (3.5-5.1) mEq/L Chloride 105 (98-107) mEq/L Carbon Dioxide 23 (23-29) mEq/L BUN 49 H (8-23) mg/dL Creatinine 2.32 H (0.70-1.30) mg/dL Glucose 152 H (70-105) mg/dL Calcium 8.9 (8.6-10.3) mg/dL
[2018-09-15 08:43] LABS: Calcium 8.9 mg/dL (8.6-10.3); Potassium 4.6 mEq/L (3.5-5.1)
[2018-09-15] MEDS: Insulin LISPRO 300 UNITS/3 ML VIAL SQ SCH ×2 (09:00→11:48)
--- NOTE | 2018-09-15 10:09 | Internal Med Progress Note ---
Hospitalist Progress Note - Encounter Date of Encounter: 09/15/18 Time of Encounter: 10:04 - Subjective Interval History: Patient was seen and examined at bedside this morning. He states that he is feeling well today. He notes that he has urinated several times today without difficulty. He denies having any blood in his urine. Per the recommendations of urology, his anticoagulation can be resumed when there is no blood in his urine. We will continue to treat for a urinary tract infection. Urine culture demonstrated the presence of mixed organisms resembling possible pathogens. Will resubmit a urine culture today. He denies fever, chills, suprapubic pain, abdominal pain, bleeding, weakness, fatigue, or shortness of breath. He has no complaints at this time. - Exam Vitals: Temp Pulse Resp BP Pulse Ox 98.0 F 93 16 111/64 93 09/15/18 07:00 09/15/18 07:00 09/15/18 07:00 09/15/18 07:00 09/15/18 07:00 Exam: General: A&O X3, conversant, obese, no acute distress Head: atraumatic, normocephalic Eye: PERRL, EOMI, conjuntiva pink, sclera anicteric Neck: Supple, trachea midline; No lymphadenopathy Respiratory: CTAB. No accessory muscle use, wheezes, rales, or rhonchi Cardiovascular: Irregularly irregular, +S1, +S2; no murmurs, rubs, gallops Abdomen: Soft, nontender Extremities: warm, radial pulses palpable and symmetrical Psychiatric: Normal affect, normal mood Skin: Dry, intact - Assessment and Plan (1) Urinary tract infection Current Visit: Yes Status: Acute Assessment and Plan: ASSESSMENT - UA on presentation demonstrated a large amount of leukocyte esterase, large amount of blood, and >300 urine protein - Causative organism is unknown at this time - Urine CX demonstrated the presence of mixed organisms representing possible pathogens, greater than 100,000 CFUs/mL -Initial white count was elevated at 21.2; has since decreased to 18.1 - Lactic acid within normal limits PLAN - Rocephin 1 g every 24 hours; day 2 of antibiotic therapy - We will order a repeat urine culture and tailor antibiotic therapy as appropriate - Urology recommends an additional 10 days of broad-spectrum oral antibiotic coverage (2) Hematuria Current Visit: Yes Status: Acute Assessment and Plan: ASSESSMENT - Resolved; Initially presented with gross hematuria with difficulty urinating - No cause was identified; possibly secondary to infection - Hemoglobin has decreased today to 11.8 from 13.5 - CT scan abd/pelv 09/14/18: Mild inflammatory stranding around bladder and kidneys, diverticulosis, small pericardial effusion, sequela of granulomatous di sease PLAN - Urology following; recommends outpatient cystoscopy with Dr. Han within 2-3 weeks of discharge - Resume Xarelto - Continue IV antibiotics (3) Sepsis Current Visit: Yes Status: Acute Assessment and Plan: ASSESSMENT - Resolved; Presented with 2 out of 4 SIRS criteria with tachycardia and le ukocytosis in the setting of UTI - Blood cultures were not obtained prior to antibiotic initiation - CXR 09/14/18: Cardiac silhouette enlarged, no acute bony abnormality, clear lung [place] - Today, patients heart rate is 81 bpm; white count is decreasing PLAN - Continue Rocephin as above (4) Atrial fibrillation Current Visit: Yes Status: Acute Assessment and Plan: ASSESSMENT - Patient has a known history of atrial fibrillation - Normally takes metoprolol and Xarelto - Xarelto was initially held due to hematuria - Since hematuria has resolved, will resume (5) CKD (chronic kidney disease) stage 3, GFR 30-59 ml/min Current Visit: No Status: Chronic Assessment and Plan: ASSESSMENT - Creatinine elevated at 2.32, GFR is 29 - Per chart review, patients baseline creatinine appears to be between 2 and 2.5 (6) DVT prophylaxis Current Visit: No Status: Acute Assessment and Plan: ASSESSMENT - Pneumatic compression devices - Time Spent with Patient Total time spent is greater than 50% in coordination of care (as documented) at patient's floor/unit and/or counseling patient: Internal Medicine: Result - Labs CBC & Chem 7: 09/15/18 07:46 09/15/18 07:46 Labs: Short CBC 09/15/18 Range/Units 07:46 WBC 18.1 H (4.3-11.1) K/mcL Hgb 11.8 L D (12.9-16.9) g/dL Hct 37.0 L (37.5-50.1) % Plt Count 238 (140-400) K/mcL Neutrophils # 14.6 H (1.6-8.9) K/mcL BMP 09/15/18 07:46 Sodium 136 Potassium 4.6 Chloride 105 Carbon Dioxide 23 BUN 49 H Creatinine 2.32 H Glucose 152 H Calcium 8.9 - ABG Interpretation ABG results: PT/INR, D-dimer PT 15.2 Seconds (9.4-12.1) H 09/14/18 01:42 Consult Discharge Plan - Plan Referrals: Lissett Sanders, [employer]ER [Primary Care Provider] - (1) Urinary tract infection Qualifiers: Urinary tract infection type: acute cystitis Hematuria presence: with hematuria Qualified Code(s): N30.01 - Acute cystitis with hematuria (2) Hematuria Qualifiers: Hematuria type: gross Qualified Code(s): R31.0 - Gross hematuria (3) Sepsis Qualifiers: Sepsis type: sepsis due to unspecified organism Qualified Code(s): A41.9 - Sepsis, unspecified organism (4) Atrial fibrillation Qualifiers: Atrial fibrillation type: chronic Qualified Code(s): I48.2 - Chronic atrial fibrillation
--- NOTE | 2018-09-15 11:25 | Discharge Summary ---
<Paulino Lam - Last Filed: 09/15/18 11:31> - NOTES TO OUTPATIENT PROVIDER Notes to Outpatient Provider: Follow-up with primary care in 1 week. Follow-up with urologist Dr. Han for outpatient cystoscopy within 2-3 weeks of discharge. Date of Encounter: 09/15/18 Time of Encounter: 11:23 - Discharge Diagnosis (1) Urinary tract infection Priority: Primary Status: Acute Qualifiers: Urinary tract infection type: acute cystitis Hematuria presence: with hematuria Qualified Code(s): N30.01 - Acute cystitis with hematuria (2) Hematuria Priority: Secondary Status: Acute Qualifiers: Hematuria type: gross Qualified Code(s): R31.0 - Gross hematuria (3) Sepsis Priority: Secondary Status: Acute Qualifiers: Sepsis type: sepsis due to unspecified organism Qualified Code(s): A41.9 - Sepsis, unspecified organism (4) Atrial fibrillation Priority: Secondary Status: Acute Qualifiers: Atrial fibrillation type: chronic Qualified Code(s): I48.2 - Chronic atrial fibrillation (5) CKD (chronic kidney disease) stage 3, GFR 30-59 ml/min Priority: Secondary Status: Chronic (6) DVT prophylaxis Priority: Secondary Status: Acute Hospital course: Mr. Connell is a 62 year old male with a PMH of COPD, atrial fibrillation on Xarelto, history of CVA, HLD, HTN, diabetes mellitus, and chronic kidney disease stage III who presented to [facility] ED on 09/14/18 with tissue complaint of gross hematuria. He reported having difficulty voiding earlier that morning, and only small amounts of urine would come out at a time. In the afternoon, patient went to void again, and noticed that his urine was bright red in color. He presented to the ED for further evaluation. He denied any other symptoms, such as fever, chills, flank pain, dysuria, abdominal pain, or suprapubic pain. Upon arrival to the emergency department, vital signs were significant for an elevated pulse of 129 bpm. All other vital signs were within normal limits. Labs demonstrated an elevated white count of 21.2 with left shift, a low sodium of 135, a creatinine of 2.27, which appears to be baseline, an elevated glucose of 228. Urinalysis demonstrated a large amount of leukocyte esterase, a large amount of blood, greater than 300 urine protein. Urine culture was obtained. CXR demonstrated no acute findings. CT scan of the abdomen and pelvis was performed, which demonstrated mild inflammatory stranding seen around the bladder and kidneys, diverticulosis, a small pericardial effusion, and sequela of granulomatous disease. He was started on Rocephin for a presumed urinary tract infection. A bladder scan was attempted, but they were unable to find the bladder. His Xarelto was held. On the first day of admission, patient reported that he was having some difficulty urinating. He said that it was only a dribble urine would come out each time. Urology was consulted; recommended holding anticoagulation and continuing antibiotic therapy. After his admission, patient began urinating normally without difficulty. Patient was seen and examined at bedside this morning. He states that he is feeling well today. He notes that he has urinated several times today without difficulty. He denies having any blood in his urine. Per the recommendations of urology, his anticoagulation can be resumed when there is no blood in his urine. We will continue to treat for a urinary tract infection. Urine culture demonstrated the presence of mixed organisms resembling possible pathogens. He denies fever, chills, suprapubic pain, abdominal pain, bleeding, weakness, fatigue, or shortness of breath. He has no complaints at this time. He will be discharged on a 10 day course of Omnicef. He will need outpatient cystoscopy with Dr. Han within 2-3 weeks of discharge. - Time Spent with Patient Total time spent providing and/or coordinating discharge services: - Discharge Medications Prescriptions: New Cefdinir [Omnicef] 300 mg PO BID #20 capsule Continued Cholecalciferol (Vitamin D3) [Vitamin D3] 50,000 unit PO NORIEGA Liraglutide [Victoza 2-Henry] 1.8 mg SQ DAILY Rivaroxaban [Xarelto] 20 mg PO DAILY Albuterol Sulfate [Albuterol Inhaler] 2 puff IH DAILY Pioglitazone HCl 45 mg PO DAILY HYDROcodone/Acet 5/325 mg [Ennis 5-325 mg] 1 tab PO Q12H PRN PRN Reason: KNEE PAIN Metoprolol [Lopressor] 50 mg PO BID #60 tablet metOLazone [Zaroxolyn] 10 mg PO DAILY #60 tablet Insulin Glargine [Lantus] 35 unit SQ HS Insulin Glargine [Lantus] 45 unit SQ DAILY Aspirin [Lo-Dose Aspirin EC] 81 mg PO DAILY Atorvastatin [Lipitor] 40 mg PO DAILY Lisinopril [Zestril] 10 mg PO DAILY Home Medications: Insulin Glargine [Lantus] 35 unit SQ HS 07/03/15 [History] Insulin Glargine [Lantus] 45 unit SQ DAILY 07/03/15 [History] Aspirin [Lo-Dose Aspirin EC] 81 mg PO DAILY 06/10/16 [History] Atorvastatin [Lipitor] 40 mg PO DAILY 07/26/16 [History] Lisinopril [Zestril] 10 mg PO DAILY 07/26/16 [History] Albuterol Sulfate [Albuterol Inhaler] 2 puff IH DAILY 08/03/16 [History] Cholecalciferol (Vitamin D3) [Vitamin D3] 50,000 unit PO NORIEGA 08/03/16 [History] Liraglutide [Victoza 2-Henry] 1.8 mg SQ DAILY 08/03/16 [History] Rivaroxaban [Xarelto] 20 mg PO DAILY 08/03/16 [History] HYDROcodone/Acet 5/325 mg [Ennis 5-325 mg] 1 tab PO Q12H PRN 04/17/18 [History] Pioglitazone HCl 45 mg PO DAILY 04/17/18 [History] Metoprolol [Lopressor] 50 mg PO BID #60 tablet 04/26/18 [Rx] metOLazone [Zaroxolyn] 10 mg PO DAILY #60 tablet 04/26/18 [Rx] Cefdinir [Omnicef] 300 mg PO BID #20 capsule 09/15/18 [Rx] Allergies/Adverse Reactions: Allergy/AdvReac Type Severity Reaction Status Date / Time No Known Allergies Allergy Verified 09/12/16 14:29 Date of admission: 09/14/18 05:34 Primary care physician: Lissett Sanders Consults: 09/14/18 05:13 Consult to Urology [CONS] Routine Consulting Provider: Urology Mary Reason for Consult: Painless Hematuria; decreased U/O Call Completed: No Discharging clinician: Paulino Lam Anticipated date of discharge: 09/15/18 - Constitutional Vitals: Temp Pulse Resp BP Pulse Ox 98.0 F 93 16 111/64 93 09/15/18 07:00 09/15/18 07:00 09/15/18 07:00 09/15/18 07:00 09/15/18 07:00 Exam: General: A&O X3, conversant, obese, no acute distress Head: atraumatic, normocephalic Eye: PERRL, EOMI, conjuntiva pink, sclera anicteric Neck: Supple, trachea midline; No lymphadenopathy Respiratory: CTAB. No accessory muscle use, wheezes, rales, or rhonchi Cardiovascular: Irregularly irregular, +S1, +S2; no murmurs, rubs, gallops Abdomen: Soft, nontender Extremities: warm, radial pulses palpable and symmetrical Psychiatric: Normal affect, normal mood Skin: Dry, intact - Patient Status Disposition: Home, Self-Care Condition: Good Overall status at discharge: patient is progressing back to baseline - Discharge Instructions Follow Up With: Johnny Han [Partnered Physician] - 09/29/18 1:00 pm (Please follow up as schedule....) Lissett Sanders CNP [Primary Care Provider] - 09/21/18 9:00 am (Please follow up as schedule...) - Diet and Activity Activity: increase activity as tolerated Diet: advance to your usual diet <Foster Prado - Last Filed: 09/15/18 22:26> Date of Encounter: 09/15/18 - Discharge Diagnosis (1) CKD (chronic kidney disease) stage 3, GFR 30-59 ml/min Status: Chronic (2) DVT prophylaxis Status: Acute (3) Leukocytosis Status: Acute Qualifiers: Leukocytosis type: unspecified Qualified Code(s): D72.829 - Elevated white blood cell count, unspecified (4) Hematuria Status: Acute Qualifiers: Hematuria type: gross Qualified Code(s): R31.0 - Gross hematuria (5) Urinary tract infection Status: Acute Qualifiers: Urinary tract infection type: acute cystitis Hematuria presence: with hematuria Qualified Code(s): N30.01 - Acute cystitis with hematuria (6) Atrial fibrillation Status: Acute Qualifiers: Atrial fibrillation type: chronic Qualified Code(s): I48.2 - Chronic atrial fibrillation (7) Sepsis Status: Acute Qualifiers: Sepsis type: sepsis due to unspecified organism Qualified Code(s): A41.9 - Sepsis, unspecified organism Hospital course: Mr. Connell is a 62 year old male - Time Spent with Patient Total time spent providing and/or coordinating discharge services: Date of admission: 09/14/18 04:43 Primary care physician: Lissett Sanders Consults: 09/14/18 05:13 Consult to Urology [CONS] Routine Consulting Provider: Urology Mary Reason for Consult: Painless Hematuria; decreased U/O Call Completed: No - Constitutional Vitals: Temp Pulse Resp BP Pulse Ox 99.5 F 88 16 115/67 92 09/15/18 11:34 09/15/18 11:34 09/15/18 11:34 09/15/18 11:34 09/15/18 11:34 - Attending Attestation I examined this patient and my medical decision-making was reviewed with the Resident Physician. I agree with the documented findings, disposition and treatment plan as described except to the extent set forth below. Holding Xarelto until hematuria improves. Then can resume, currently treating UTI may need some time. Should evaluate risks vs benefits of anticoagulation in patient with afib and CVA vs hematuria. Hematuria near resolved.
[2018-09-15 11:40] VITALS: BP 115/67
--- NOTE | 2018-09-16 09:16 | Electrocardiograph Report ---
[address] [address] Test Date: 2018-09-14 Pat Name: [facility] Department: [id number] Room: 2A Gender: M Scrap Piler: : [id number] Requested By: Leo Tai Order Number: [id number] Reading MD: Osmin Vigil Measurements Intervals [place] Rate: 136 P: 150 MI: 114 QRS: 169 QRSD: 160 T: -30 QT: 354 QTc: 533 Interpretive Statements Atrial fibrillation with rapid ventricular response RBBB low voltage Electronically Signed On 09-16-2018 9:14:06 EDT by Osmin Vigil
== END 2018-09-15 13:39 | disposition home or self-care (01) ==
LOC: 2ANU 21:17 → EMEROOARM 21:17 → 2ANU 09-14 04:58 → SUATTDRO 09-14 05:34
PROVIDERS: ADMIT Internal Medicine; ATTEND Student in an Organized Health Care Education/Training Program